=== PATIENT | female | born 1990 | race Caucasian/White ===

== ENCOUNTER 2016-12-30 09:40 | Inpatient (IN) ==
[2017-01-04] MEDS ORDERED: MAG-AL + SIM ORAL LIQUID 30ml PO PRN ×2 (03:58→13:19)
[2017-01-04] MEDS ORDERED: METHYLERGONOVINE 0.2 MG/ML INJECTION IM PRN (03:58)
[2017-01-04] MEDS ORDERED: CARBOPROST 250 MCG/ML INJECTION IM PRN (03:58)
[2017-01-04] MEDS ORDERED: LIDOCAINE 1% (10mg/ml) 2mL INJ PF SDV ID PRN (03:58)
[2017-01-04] MEDS ORDERED: CALCIUM CARBONATE Chewable 500mg TABLET PO PRN ×2 (03:58→13:19)
[2017-01-04] MEDS ORDERED: ACETAMINOPHEN 500 MG TABLET PO PRN ×2 (03:58→13:19)
--- OUTSIDE RECORDS SUMMARY | 2017-01-04 03:59 | External Medical Summary | Continuity of Care Document ---
:1990 Author Organization [facility] Address [address] [place], [place] [address] Phone Care Team Providers Name Role Phone Sarah Beaver Unavailable Unavailable Allergies, Adverse Reactions, Alerts Substance Reaction Severity Status No Known Drug Allergies Unknown Active Medications Medication Instructions Dosage Effective Dates Status Comments (start - stop) ONE DAILY take 1 tablet by oral - Active (unknown strength) route every day Problems Condition Effective Dates (start - stop) Clinical Status Unspecified lump in breast - Pap Smear Screening, Cervix - Encounter for suprvsn of normal - , first trimester 11 weeks gestation of - Unsp infct of urinary tract in - , second trimester Encounter for suprvsn of normal - , second trimester 27 weeks gestation of - Unsp infct of urinary tract in - , third trimester 36 weeks gestation of - Maternal care for excess growth, - second tri, unsp Encounter for suprvsn of normal - , second trimester 15 weeks gestation of - Maternal care for excess growth, - second tri, unsp 18 weeks gestation of - Encounter for suprvsn of normal - , second trimester 18 weeks gestation of - Encounter for suprvsn of normal - , second trimester 23 weeks gestation of - Encounter for suprvsn of normal - , second trimester 27 weeks gestation of - Hematuria, unspecified - Encounter for suprvsn of normal - , third trimester 31 weeks gestation of - Encounter for suprvsn of normal - , third trimester 39 weeks gestation of - Encounter for suprvsn of normal - , third trimester 30 weeks gestation of - 34 weeks gestation of - Encounter for suprvsn of normal - , third trimester Encounter for suprvsn of normal - , third trimester 36 weeks gestation of - Encounter for suprvsn of normal - , third trimester 37 weeks gestation of - Encounter for suprvsn of normal - , third trimester 38 weeks gestation of - SAB Uncomplicated, Incomplete - Active Anemia, Acute Blood Loss - Active SAB Uncomplicated, Incomplete - Active Dysfunctional Uterine Bleeding - Active SAB Uncomplicated, Complete - Active Procedures Procedure Date Unknown Results Test Name Date and Time Measure Units Reference Range Abnormal Flag Comments Unknown Advance Directives Directive Yes / No Effective Date File Name Unknown Encounters Encounter Practice Location Reason(s) Diagnoses Date Provider Care Team Description For Visit Members Kimberly [place]inoj[place] Encounter for Dec-0 Cueva Referring In Womens suprvsn of normal 6-201 Criss. Provider: Jignesh AGOSTO, , third 7 700 Criss Cueva PO Box weeks Medical K, 700 1522, gestation of [facility], , [facility] [place], 120, Dave 120, [id number], Ashish [place], [place], tel:[phone] , [place]. tel: tel: [phone] Kimberly Hinojosa Encounter for Nov-3 Cueva Referring In Womens suprvsn of normal 0-201 Criss. Provider: Jignesh AGOSTO, , third 7 700 Criss Cueva PO Box [email or web address] weeks Medical K, 700 1522, gestation of [facility], , [facility] [place], 120, Dave 120, [id number], Ashish [place], [place], [place], tel: [phone]. , [place]. tel: tel: [phone] Kimberly Hinojosa Encounter for Aug-2 Cueva Referring In Womens suprvsn of normal 3-201 Criss. Provider: Health SURENDRA, , third 7 700 Criss Cueva PO Box [email or web address] weeks Medical , 700 1522, gestation of [facility], , [facility] Dr [place], 120, Dave 120, [id number], Ashish [place], [place], tel:[phone]. , [place]. tel: tel: [phone] Kimberly Hinojosa Aug-2 Cueva In Womens 1-201 Criss. Health SURENDRA, 7 700 PO [address] Medical [address]22, Paulina Jarvis, , [facility] [place], 120, [id number], [place], tel:[phone] , [place]. tel: [phone] Kimberly Hinojosa Unsp infct of Aug-1 Cueva Referring In Womens urinary tract in 7-201 Criss. Provider: Jignesh AGOSTO, , third 7 700 Criss Cueva PO Box [email or web address] weeks Medical , 700 1522, gestation of [facility], , [facility] Dr [place], 120, Dave 120, [id number], Ashish [place], [place], tel: [phone]. , [place]. tel: tel: [phone] Kimberly Hinojosa Encounter for Aug-1 Cueva Referring In Womens suprvsn of normal 6-201 Criss. Provider: Jignesh AGOSTO, , third 7 700 Criss Cueva PO Box [email or web address] weeks Medical , 700 1522, gestation of [facility], , [facility] Dr [place], 120, Dave 120, [id number], Ashish [place], [place], tel:+ [phone]. , [place]. tel: tel: [phone] Kimberly Hinojosa 34 weeks Nov-0 Cueva Referring In Womens gestation of 2- Criss. Provider: Jignesh AGOSTO, pregnancyEncounte 7 700 Criss Cueva PO Box r for suprvsn of Medical , 700 1522, normal , [facility], third trimester , [facility] Dr [place], 120, Dave 120, , Ashish [place], [place], [place], tel: [phone]. , [place]. tel: tel: [phone] Kimberly Hinojosa Hematuria, Oct- Cueva Referring In Womens unspecifiedEncoun - Criss. Provider: Jignesh AGOSTO, ter for suprvsn 7 700 Criss Cueva PO Box of [facility], 700 1522, , third [facility], [email or web address] weeks , [facility] Dr [place], gestation of 120, Dave 120, , Ashish [place], [place], [place], tel: [phone]. , [place]. tel: tel: [phone] Kimberly Hinojosa Encounter for Oct- Cueva Referring In Womens suprvsn of normal - Criss. Provider: Jignesh AGOSTO, , third 7 700 Criss Cueva PO Box [email or web address] weeks Medical , 700 1522, gestation of [facility], , [facility] Dr [place], 120, Dave 120, [id number], Ashish [place], [place], tel: [phone]. , [place]. tel: tel: [phone] Kimberly Hinojosa Unsp infct of [place] Referring In Womens urinary tract in - Rhea. Provider: Jignesh AGOSTO, , second 7 700 Criss Cueva PO Box [facility] , 700 1522, r for suprvsn of [facility], normal , , [facility] Dr FI[place], second 120, Dave 120, , [email or web address] weeks Ashish [place], gestation of [place], tel: [phone]. , [place]. tel: tel: [phone] Kimberly Hinoj[place] Encounter for Shaq-1 Cueva Referring In Womens suprvsn of normal 3-201 Criss. Provider: Jignesh AGOSTO, , second 7 700 Criss Cueva PO Box [email or web address] weeks Medical , 700 1522, gestation of [facility], , [facility] Dr [place], 120, Dave 120, , Ashish [place], [place], [place], tel: [phone]. , [place]. tel: tel: [phone] [place] Encounter for May-1 Cueva Referring In Womens suprvsn of normal 6-201 Criss. Provider: Jignesh AGOSTO, , second 7 700 Criss Cueva PO Box [email or web address] weeks [facility], 700 1522, gestation of [facility], , [facility] Dr [place], 120, Dave 120, , Ashish [place], [place], tel: [phone]. , [place]. tel: tel: [phone] Kimberly [place] Encounter for Apr-1 Cueva Referring In Womens suprvsn of normal 7-201 Criss. Provider: Jignesh AGOSTO, , second 7 700 Criss Cueva PO Box [email or web address] weeks [facility], 700 1522, gestation of [facility], , [facility] Dr [place], 120, Dave 120, [id number], Ashish [place], [place], [place], tel: [phone]. , [place]. tel: tel: [phone] [place] Maternal care for Apr-1 Cueva Referring In Womens Ultrasound excess 7-201 Criss. Provider: Jignesh AGOSTO, growth, second 7 700 Criss Cueva PO Box tri, [email or web address] weeks [facility], 700 1522, gestation of [facility], , [facility] Dr [place], 120, Dave 120, [id number], Ashish [place], [place], tel:[phone]. , [place]. tel: tel: [phone] Kimberly Hinojosa Maternal care for Jun- Cueva Referring In Womens excess 2-201 Criss. Provider: Jignesh AGOSTO, growth, second 7 700 Criss Cueva PO Box [facility], 700 1522, unspEncounter for [facility], suprvsn of normal , [facility] Dr [place], , second 120, Dave 120, [id number], [email or web address] weeks Ashish [place], gestation of [place], [place], tel: [phone]. , [place]. tel: tel: [phone] Kimberly Hinojosa Unspecified lump Feb- Cueva Referring In Womens in breastPap 4-201 Criss. Provider: Jignesh AGOSTO, Smear Screening, 7 700 Criss Cueva [facility], for suprvsn of [facility] [place], normal , , [facility] Dr [place], first [email or web address] 120, Dave 120, [id number], weeks gestation Ashish [place], of [place], tel:[phone]. , [place]. tel: tel: [phone] Kimberly Hinojosa Cueva In Womens 5-201 Criss. Jignesh AGOSTO, 4 700 PO [address] Medical [address], [address] [place], [facility] [place], 120, [id number], [place], [place], tel:[phone] , [place]. tel: [phone] Family History Family Member Diagnosis Age At Onset No family history of Diabetes No family history of Ovarian Cancer No family history of Lung Disease Brother Renal disease Mother Osteoporosis No family history of Thyroid Disorder No family history of Hypertension No family history of Epilepsy No Family history of Thrombosis No family history of Breast Cancer No family history of Cardiovascular Disease No family history of Stroke No family history of Colon Cancer Immunizations Vaccine Date Status Comments Tdap completed Source: New Immunization Record Influenza, injectable, completed Source: Other Provider quadrivalent, preservative free, 3 yrs or older Payers Payer name Insurance type Covered democrat ID Authorization(s) [employer] [place] [id number] [employer] - [place] [id number] Social History Type Description Quantity Date Captured Unknown Vital Signs Date / Height Weight BMI Pulse Blood Temperature Respiratory Body Head BMI Time: Rate Pressure Rate Surface Circumference percentile Area Unknown Chief Complaint And Reason For Visit Unknown Chief Complaint And Reason For Visit Reason For Referral Reason For Referral Unknown Plan Of Care Date Type Action Status Appointment Nannette Jones BOOKED Future Order: Radiology Order Breast Ultrasound Left Breast Ordered ([id number]) Future Order: Radiology Order Complete OB Ultrasound > 14 Ordered Weeks ([id number]) Date Type Problem Goal Intervention Status Start Date Unknown. History Of Present Illness Encounter Date Complaint History Of Present Illness This patient has no known history of present illness Functional Status Encounter Date Functional Assessment Cognitive Assessment Unknown Medications Administered Medication Instructions Dosage Effective Dates (start - stop) Status Comments Drug Treatment Unknown Instructions Date Instruction Additional Information labor signs group B strep screening [facility] appt card gestational glucose lab screening anticipated course of care nutrition and weight gain counseling, special diet toxoplasmosis precautions (cats / raw meat) exercise indications for ultrasound influenza vaccine environmental / work hazards travel HIV and other routine tests risk factors identified by history tobacco (ask, advise, assess, assist and arrange) alcohol illicit / recreational drugs use of any medications (including supplements, vitamins, herbs, OTC drugs) smoking counseling domestic violence seat belt use genetic testing new ob handbook Zika virus assessment & precautions dentist, wt gain 25-35#
--- OUTSIDE RECORDS SUMMARY | 2017-01-04 03:59 | External Medical Summary | Continuity of Care Document ---
:1990 Author Organization [facility] Address [address] [place], [place] [address] Phone Care Team Providers Name Role Phone [...] third 7 700 Criss Cueva PO Box [email or web address] weeks Medical K, 700 1522, gestation of [facility], , [facility] [place], 120, Dave 120, [id number], Ashish [place], [place], tel:[phone] , [place]. tel: tel: [phone] Kimberly Hinojosa Encounter for Nov-3 Cueva Referring In Womens suprvsn of normal 0-201 Criss. Provider: Jignesh AGOSTO, , third 7 700 Criss Cueva PO Box [email or web address] weeks Medical K, 700 1522, gestation of [facility], , [facility] Dr FIEL[place], 120, Dave 120, [id number], Ashish [place], [place], [place], tel: [phone]. , [place]. tel: tel: [phone] Kimberly Hinoj[place] Encounter for Aug-2 Cueva Referring In Womens suprvsn of normal 3-201 Criss. Provider: Jignesh AGOSTO, , third 7 700 Criss Cueva PO Box [email or web address] weeks Medical , 700 1522, gestation of [facility], , [facility] Dr FIEL[place], 120, Dave 120, [id number], Ashish [place], [place], tel: [phone]. , [place]. tel: tel: [phone] [place]ino[place] Aug-1 Cueva Referring In Womens 9-201 Criss. Provider: Jignesh AGOSTO, 7 700 Criss Cueva PO Box [facility], 700 1522, [facility], , [facility] Dr FIEL[place], 120, Dave 120, [id number], Ashish [place], [place], [place], tel:[phone]. , [place]. tel: tel: [phone] Kimberly Hinojosa Unsp infct of Aug-1 Cueva Referring In Womens urinary tract in 7-201 Criss. Provider: Jignesh AGOSTO, , third 7 700 Criss Cueva PO Box [id number] weeks Medical , 700 1522, gestation of [facility], , [facility] Dr FIEL[place], 120, Dave 120, [id number], Ashish [place], [place], tel: [phone]. , [place]. tel: tel: [phone] Kimberly Hinojosa Encounter for Aug-1 Cueva Referring In Womens suprvsn of normal 6-201 Criss. Provider: Health SURENDRA, , third 7 700 Criss Cueva PO Box [email or web address] weeks Medical , 700 1522, gestation of [facility], , [facility] Dr FIEL[place], 120, Dave 120, [id number], Ashish [place], [place], [place], tel: [phone]. , [place]. tel: tel: [phone] Kimberly Hinojosa 34 weeks Nov-0 Cueva Referring In Womens gestation of 2-201 Criss. Provider: Jignesh AGOSTO, pregnancyEncounte 7 700 Criss Cueva PO Box r for suprvsn of [facility], 700 152, normal , [facility], third trimester , [facility] Dr [place], 120, Dave 120, [id number], Ashish [place], [place], [place], tel: [phone]. , [place]. tel: tel: [phone] Kimberly Hinojosa Hematuria, Cueva Referring In Womens unspecifiedEncoun - Criss. Provider: Jignesh AGOSTO, ter for suprvsn 7 700 Criss Cueva PO Box of normal Medical , 700 152, , third [facility], [id number] weeks , [facility] Dr FIELDS, gestation of 120, Dave 120, , Ashish [place], [place], tel: [phone]. , [place]. tel: tel: [phone] Kimberly Hinojosa Encounter for Oct- Cueva Referring In Womens suprvsn of normal 5-201 Criss. Provider: Jignesh AGOSTO, , third 7 700 Criss Cueva PO Box [email or web address] weeks Medical , 700 1522, gestation of [facility], , [facility] Dr [place], 120, Dave 120, [id number], Ashish [place], [place], tel: [phone]. , [place]. tel: tel: [phone] Kimberly Hinojosa Unsp infct of [place] Referring In Womens urinary tract in 5-201 Rhea. Provider: Jignesh AGOSTO, , second 7 700 Criss Cueva PO Box [facility] , 700 1522, [facility] , , [facility] Dr FIELDS, second 120, Dave 120, [id number], [email or web address] weeks Ashish [place], gestation of [place], [place], tel: [phone]. , [place]. tel: tel: [phone] Kimberly Hinojosa Encounter for Shaq-1 Cueva Referring In Womens suprvsn of normal 3-201 Criss. Provider: Health SURENDRA, , second 7 700 Criss Cueva PO Box [email or web address] weeks Medical , 700 1522, gestation of [facility], , [facility] Dr [place], 120, Dave 120, [id number], Ashish [place], [place], tel:[phone]. , [place]. tel: tel: [phone] Hinojosa Encounter for May-1 Cueva Referring In Womens suprvsn of normal 6-201 Criss. Provider: Jignesh AGOSTO, , second 7 700 Criss Cueva PO Box [email or web address] weeks Medical , 700 1522, gestation of [facility], , [facility] Dr [place], 120, Dave 120, [id number], Ashish [place], [place], tel: [phone]. , [place]. tel: tel: [phone] [place] Encounter for Apr-1 Cueva Referring In Womens suprvsn of normal 7-201 Criss. Provider: Health SURENDRA, , second 7 700 Criss Cueva PO Box [email or web address] weeks Medical , 700 1522, gestation of [facility], , [facility] Dr FI[place], 120, Dave 120, [id number], Ashish [place], [place], [place], tel:[phone]. , [place]. tel: tel: [phone] Kimberly Hinojosa Maternal care for Apr-1 Cueva Referring In Womens Ultrasound excess 7-201 Criss. Provider: Health SURENDRA, growth, second 7 700 Criss Cueva PO Box tri, [email or web address] weeks Medical , 700 1522, gestation of [facility], Dr, [facility] Dr FIEL[place], 120, Dave 120, , Ashish [place], [place], tel: [phone]. , [place]. tel: tel: [phone] Kimberly Hinoj[place] Maternal care for Mar- Cueva Referring In Womens excess 2-201 Criss. Provider: Health PA, growth, second 7 700 Criss Cueva PO Box tri, Medical , 700 1522, unspEncounter for [facility], suprvsn of normal , [facility] Dr FIELDS, , second 120, Dave 120, [id number], [email or web address] weeks Ashish [place], gestation of [place], [place], tel: [phone]. , [place]. tel: tel: [phone] Kimberly [place] Unspecified lump Fe-2 Cueva Referring In Womens in breastPap 4-201 Criss. Provider: Health SURENDRA, Smear Screening, 7 700 Criss Cueva PO Box [facility], 700 1522, for suprvsn of [facility], normal , , [facility] Dr FIELDS, first [email or web address] 120, Dave 120, [id number], weeks gestation Ashish [place], [place], [place], tel: [phone]. , [place]. tel: tel: [phone] Kimberly Hinoj[place] Oct- Cueva In Womens 5-201 Criss. Health SURENDRA, 4 700 PO [address] Medical [address], [address] [place], Dave [place], 120, , [place], [place], tel: [phone] , [place]. tel: [phone] Family History Family Member Diagnosis Age At [...] older Payers Payer name Insurance type Covered green party ID Authorization(s) [employer] - Medicaid [place] [id number] [employer] - Medicaid [place] [id number] Social History Type Description Quantity Date Captured Alcohol Use Details No Caffeine Use Details Unknown Tobacco Use Status Unknown Smoking Status Never smoker Vital Signs Date / Height Weight BMI Pulse Blood Temperature Respiratory Body Head BMI Time: Rate Pressure Rate Surface Circumference percentile Area Unknown Chief Complaint And Reason For Visit Unknown Chief Complaint And Reason For Visit Reason For Referral Reason For Referral Unknown Plan Of Care Date Type Action Status Appointment Nannette Jones BOOKED Future Order: Radiology Order Breast Ultrasound Left Breast Ordered ([id number]) Future Order: Radiology Order Complete OB Ultrasound > 14 Ordered Weeks ([id number]) Date Type Problem Goal Intervention Status Start [...] Information labor signs group B strep screening [facility] [place] appt card gestational glucose lab screening anticipated [...]
--- OUTSIDE RECORDS SUMMARY | 2017-01-04 03:59 | External Medical Summary ---
:1990 Author Organization [employer] Care Team Providers Name Role Phone Jeniffer Hampton Provider Role Unavailable Allergies, Adverse Reactions, Alerts Substance Reaction Event Type N.K.D.A. Info Not Available Non Drug Allergy Problems Problem Type Condition Code Onset Dates Condition Status Assessment Other general medical examination for V70.3 Active administrative purposes Problem Unspecified anemia 285.9 Active Medications Medication Code System Code Instructions Start End Date Status Dosage Date Levora 0.15/30 [facility] 31132-798 0.15-30 MG-MCG August 29, 1 tablet (28) 0-28 Orally Once a day 2014 Ibuprofen [facility] 19941-330 600 MG Orally 1 tablet 0-00 Three times a day Procedures Procedure Coding System Code Date OFFICE VISIT, EST-LOW COMPLEXITY (15 MIN.) CPT-4 67491 September 06, 2014 Vital Signs Date/Time: September 06, 2014 Height 62.5 in Weight 124.08 lbs Temperature 98.4 F Blood Pressure Diastolic 82 mm Hg Blood Pressure Systolic 128 mm Hg Cardiac Monitoring Heart Rate 68 /min BMI 22.33 Index Respiratory Rate 12 /min Results No Known Results Summary Purpose [employer] Submission
--- OUTSIDE RECORDS SUMMARY | 2017-01-04 03:59 | External Medical Summary ---
:1990 Author Organization [employer] Care Team Providers Name Role Phone Jeniffer Hampton Provider Role Unavailable Allergies, Adverse Reactions, Alerts Substance Reaction Event Type N.K.D.A. Info Not Available Non Drug Allergy Problems Problem Type Condition ICD-9 Code Onset Dates Condition Status Assessment General counseling for V25.01 Active prescription of oral contraceptives Assessment Unspecified anemia 285.9 Active Problem Unspecified anemia 285.9 Active Medications Medication Code System Code Instructions Start Date End Date Status Dosage Ibuprofen [facility] 18843-555 600 MG Orally 1 tablet 0-00 Three times a day Sprintec 28 [facility] 23726-894 0.25-35 MG-MCG June 27 tablet 6-58 Orally Once a day 2014 Procedures Procedure Coding System Code Date COMPLETE CBC W/AUTO DIFF WBC CPT-4 04556 June 27, 2014 OFFICE VISIT, DRIVE IN WAITER/WAITRESS-LOW COMPLEXITY (30 MIN.) CPT-4 42080 June 27, 2014 I[facility] CMP CPT-4 61843 June 27, 2014 Vital Signs Date/Time: June 27, 2014 Height 62.5 in Weight 112.8 lbs Temperature 98.8 F Blood Pressure Diastolic 58 mm Hg Blood Pressure Systolic 96 mm Hg Cardiac Monitoring Heart Rate 68 /min BMI 20.30 Index Respiratory Rate 14 /min Results No Known Results Summary Purpose [employer] Submission
--- OUTSIDE RECORDS SUMMARY | 2017-01-04 03:59 | External Medical Summary ---
:1990 Author Organization [employer] Care Team Providers Name Role Phone Jeniffer Hampton Provider Role Unavailable Allergies No Known Allergies Problems Problem Type Condition ICD-9 Code Onset Dates Condition Status Problem Unspecified anemia 285.9 Active Medications No Known Medications Results No Known Results Summary Purpose [employer] Submission
--- OUTSIDE RECORDS SUMMARY | 2017-01-04 03:59 | External Medical Summary | Continuity of Care Document ---
:1990 Author Organization [facility] Address [address] [place], [place] [phone] Phone Care Team Providers Name Role Phone Sarah Beaver Unavailable Unavailable Allergies, Adverse Reactions, Alerts Substance Reaction Severity Status No Known Drug Allergies Unknown Active Medications Medication Instructions Dosage Effective Dates Status Comments (start - stop) ONE DAILY take 1 tablet by - Active (unknown strength) oral route every day Keflex 500 mg take 1 capsule by 500 MG - No Longer capsule ORAL route 4 times Active every day Problems Condition Effective Dates (start - stop) Clinical Status Unsp infct of urinary tract in - , third trimester 36 weeks gestation of - Unspecified lump in breast - Pap Smear Screening, Cervix - Encounter for suprvsn of normal - , first trimester 11 weeks gestation of - Unsp infct of urinary tract in - , second trimester Encounter for suprvsn of normal - , second trimester 27 weeks gestation of - Maternal care for [...] Uncomplicated, Complete - Active Procedures Procedure Date 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 Test Name Date and Time Measure Units Reference Range Abnormal Flag Comments Panel Description: Bacteria identified in Urine by Culture CULTURE, URINE, 16:49:00 SEE NOTE CULTURE, URINE, ROUTINE ROUTINE MICRO NUMBER: [id number] TEST STATUS: FINAL SPECIMEN SOURCE: URINE SPECIMEN QUALITY: ADEQUATE RESULT: No GrowthREPORT COMMENT:RTest performed at [facility] [id number] [place] [address]Gjejknqd: ZAYDA BUCHANAN DO,MPH Advance Directives Directive Yes / No Effective Date File Name Unknown Encounters Encounter Practice Location Reason(s) Diagnoses Date Provider Care Team Description For Visit Members Kimberly [place]inoj[place] Encounter for Cueva Referring In Womens suprvsn of normal 6-201 Criss. Provider: [facility], , third 7 700 Criss Cueva PO Box [email or web address] weeks Medical K, 700 1522, gestation of [facility], , [facility] Dr FIELDS, 120, Dave 120, [id number], [place], [place], tel: [phone]. , [place]. tel: tel: [phone] Kimberly Hinojosa Encounter for Aug-3 Cueva Referring In Womens suprvsn of normal 0-201 Criss. Provider: [facility], , third 7 700 Criss Cueva PO Box [email or web address] weeks Medical , 700 1522, gestation of [facility], , [facility] Dr FIELDS, 120, Dave 120, [id number], Ash[place], [place], [place], tel: [phone]. , [place]. tel: tel: [phone] Hinojosa Encounter for Aug-2 Cueva Referring In Womens suprvsn of normal 3-201 Criss. Provider: [facility], , third 7 700 Criss Cueva PO Box [email or web address] weeks Medical , 700 1522, gestation of [facility], , [facility] Dr FIELDS, 120, Dave 120, [id number], [place], [place], tel: [phone]. , [place]. tel: tel: [phone] Hinojosa Unsp infct of Aug-1 Cueva Referring In Womens urinary tract in 7-201 Criss. Provider: [facility], , third 7 700 Criss Cueva PO Box [email or web address] weeks Medical K, 700 1522, gestation of [facility], , [facility] Dr FI[place]DS, 120, Dave 120, [id number], Ash[place], [place], [place], tel: [phone]. , [place]. tel: tel: [phone] Kimbrely Hinojosa Encounter for Aug-1 Cueva Referring In Womens suprvsn of normal 6-201 Criss. Provider: [facility], , third 7 700 Criss Cueva PO Box [email or web address] weeks Medical K, 700 1522, gestation of [facility], , [facility] Dr FI[place]DS, 120, Dave 120, , Ash[place], [place], tel: [phone]. , [place]. tel: tel: [phone] Kimberly [place]inoj[place] 34 weeks Nov-0 Cueva Referring In Womens gestation of 2-201 Criss. Provider: Health SURENDRA, pregnancyEncounte 7 700 Criss Cueva PO Box r for suprvsn of Medical , 700 1522, normal , [facility], third trimester , [facility] Dr [place]DS, 120, Dave 120, , [place], [place], tel: [phone]. , [place]. tel: tel: [phone] Hinojosa Hematuria, Cueva Referring In Womens unspecifiedEncoun 7-201 Criss. Provider: Health SURENDRA, ter for suprvsn 7 700 Criss Cueva PO Box of normal Medical K, 700 1522, , third Center [facility], [email or web address] weeks , [facility] Dr FIELDS, gestation of 120, Dave 120, , Ashish [place], [place], [place], tel: [phone]. , [place]. tel: tel: [phone] Hinojosa Encounter for Oct-0 Cueva Referring In Womens suprvsn of normal 5-201 Criss. Provider: Jignesh AGOSTO, , third 7 700 Criss Cueva PO Box [email or web address] weeks Medical , 700 1522, gestation of [facility], , [facility] Dr FI[place], 120, Dave 120, [id number], [place], [place], tel: [phone]. , [place]. tel: tel: [phone] Kimberly Hinojosa Unsp infct of [place] Referring In Womens urinary tract in - Rhea. Provider: Health SURENDRA, , second 7 700 Criss Cueva PO Box trimesterEncounte Medical K, 700 1522, r for suprvsn of [facility], normal , Dr, [facility] Dr FIELDS, second 120, Dave 120, [id number], [email or web address] weeks Ashish [place], gestation of [place], [place], tel:[phone]. , [place]. tel: tel: [phone] Hinoj[place] Encounter for Shaq-1 Cueva Referring In Womens suprvsn of normal 3-201 Criss. Provider: Health SURENDRA, , second 7 700 Criss Cueva PO Box [email or web address] weeks Medical , 700 1522, gestation of [facility], , [facility] Dr FI[place]DS, 120, Dave 120, , Ash[place], [place], tel:[phone]. , [place]. tel: tel: [phone] Hinojosa Encounter for May-1 Cueva Referring In Womens suprvsn of normal 6-201 Criss. Provider: Jignesh AGOSTO, , second 7 700 Criss Cueva PO Box [email or web address] weeks Medical , 700 1522, gestation of [facility], , [facility] Dr FI[place]DS, 120, Dave 120, [id number], Ashish [place], [place], tel: [phone]. , [place]. tel: tel: [phone] Hinojosa Encounter for Apr-1 Cueva Referring In Womens suprvsn of normal 7-201 Criss. Provider: Health SURENDRA, , second 7 700 Criss Cueva PO Box [email or web address] weeks Medical K, 700 1522, gestation of [facility], , [facility] Dr FI[place]DS, 120, Dave 120, [id number], Ashish [place], [place], tel:[phone]. , [place]. tel: tel: [phone] Hinojosa Maternal care for Apr-1 Cueva Referring In Womens Ultrasound excess 7- Criss. Provider: Health SURENDRA, growth, second 7 700 Criss Cueva PO Box tri, [email or web address] weeks [facility], 700 1522, gestation of [facility] [place], Dr, [facility] Dr FIELDS, 120, Dave 120, [id number], Ashish [place], [place], tel: [phone]. , [place]. tel: tel: [phone] Kimberly Hinojosa Maternal care for Jun- Cueva Referring In Womens excess 2-201 Criss. Provider: Health SURENDRA, growth, second 7 700 Criss Cueva PO Box tri, Medical , 700 1522, unspEncounter for [facility], suprvsn of normal Dr, [facility] Dr FIELDS, , second 120, Dave 120, [id number], [id number] weeks Ashish Hinojosa, gestation of [place], [place], tel: [phone]. , [place]. tel: tel: [phone] Kimberly Hinojosa Unspecified lump Feb- Cueva Referring In Womens in breastPap - Criss. Provider: Health SURENDRA, Smear Screening, 7 700 Criss Cueva PO Box CervixEncounter [facility], 700 1522, for suprvsn of [facility] [place], normal , , [facility] Dr FIELDS, first [email or web address] 120, Dave 120, [id number], weeks gestation Ashish H[place], [place] of [place], tel: [phone]. , [place]. tel: tel: [phone] Kimberly Hinojosa Oct- Cueva In Womens 5-201 Criss. Health SURENDRA, 4 700 PO Box Medical 15[address], [place] [address] Jar[place], [facility] [place], 120, [id number], [place], tel: [phone] , [place]. tel: [phone] Family History Family Member Diagnosis Age At [...] Authorization(s) [employer] - Medicaid [place] [id number] [employer] - Medicaid [place] [id number] Social History Type Description Quantity Date Captured Alcohol Use Details No Caffeine Use Details Unknown Tobacco Use Status Unknown Smoking Status Never smoker Vital Signs Date / Height Weight BMI Pulse Blood Temperature Respiratory Body Head BMI Time: Rate Pressure Rate Surface Circumference percentile Area 151.60 26.6 120/ lbs 0 mm[Hg] 4:16 kg/m PM eter (2) Chief Complaint And Reason For Visit Unknown Chief Complaint And Reason For Visit Reason For Referral Reason For Referral Unknown Plan Of Care Date Type Action Status Appointment Nannette Jones BOOKED Future Order: Radiology Order Breast Ultrasound Left Breast Ordered ([id number]) Future Order: Radiology Order Complete OB Ultrasound > 14 Ordered Weeks ([id number]) Date Type Problem Goal Intervention Status Start [...] Information labor signs group B strep screening [facility] appt card gestational glucose lab screening anticipated [...]
--- OUTSIDE RECORDS SUMMARY | 2017-01-04 03:59 | External Medical Summary | Continuity of Care Document ---
:1990 Author Organization [facility] Address [address] [place], [place] [id number] Phone Care Team Providers Name Role Phone [...] third 7 700 Criss Cueva PO Box [id number] weeks Medical K, 700 1522, gestation of [facility], , [facility] [place], 120, Dave 120, [id number], Ashish Hinoj[place], [place], tel:[phone] , [place]. tel: tel: [phone] Kimberly Hinojosa Encounter for Nov-3 Cueva Referring In Womens suprvsn of normal 0-201 Criss. Provider: Jignesh AGOSTO, , third 7 700 Criss Cueva PO Box weeks Medical K, 700 1522, gestation of [facility], , [facility] [place], 120, Dave 120, [id number], [place], [place], tel: [phone]. , [place]. tel: tel: [phone] Kimberly Hinojosa Encounter for Aug-2 Cueva Referring In Womens suprvsn of normal 3-201 Criss. Provider: Health SURENDRA, , third 7 700 Criss Cueva PO Box [email or web address] weeks Medical , 700 1522, gestation of [facility], , [facility] [place], 120, Dave 120, [id number], [place], [place], tel:[phone]. , [place]. tel: tel: [phone] Kimberly Hinojosa Unsp infct of Aug-1 Cueva Referring In Womens urinary tract in 7-201 Criss. Provider: Health SURENDRA, , third 7 700 Criss Cueva PO Box [email or web address] weeks Medical , 700 1522, gestation of [facility], , [facility] Dr FIELDS, 120, Dave 120, [id number], Ash[place], [place], [place], tel:[phone]. , [place]. tel: tel: [phone] Kimberly Hinojosa Aug-1 Cuvea In Womens 7-201 Criss. Health SURENDRA, 7 700 PO Box Medical 1522, [address] [place], [facility] [place], 120, [id number], [place], [place], tel: [phone] , [place]. tel: [phone] Kimberly Hinojosa Encounter for Aug-1 Cueva Referring In Womens suprvsn of normal 6-201 Criss. Provider: Health SURENDRA, , third 7 700 Criss Cueva PO Box [email or web address] weeks Medical , 700 1522, gestation of [facility], , [facility] [place], 120, Dave 120, [id number], [place], [place], tel: [phone]. , [place]. tel: tel: [phone] Kimberly Hinojosa 34 weeks Nov-0 Cueva Referring In Womens gestation of 2- Criss. Provider: Jignesh AGOSTO, pregnancyEncounte 7 700 Criss Cueva PO Box r for suprvsn of Medical , 700 1522, normal , [facility], third trimester , [facility] Dr FIELDS, 120, Dave 120, , Ashish [place], [place], tel: [phone]. , [place]. tel: tel: [phone] Kimberly Hinojosa Hematuria, Oct- Cueva Referring In Womens unspecifiedEncoun - Criss. Provider: Jignesh AGOSTO, ter for suprvsn 7 700 Criss Cueva PO Box of [facility], 700 1522, , third [facility], [email or web address] weeks , [facility] Dr FIELDS, gestation of 120, Dave 120, , Ash[place], [place], [place], tel: [phone]. , [place]. tel: tel: [phone] Kimberly Hinojosa Encounter for Oct- Cueva Referring In Womens suprvsn of normal - Criss. Provider: Jignesh AGOSTO, , third 7 700 Criss Cueva PO Box [email or web address] weeks Medical , 700 1522, gestation of [facility], , [facility] Dr FIELDS, 120, Dave 120, [id number], Ashish [place], [place], tel: [phone]. , [place]. tel: tel: [phone] Kimberly Hinojosa Unsp infct of [place] Referring In Womens urinary tract in - Rhea. Provider: Jignesh AGOSTO, , second 7 700 Criss Cueva PO Box [facility] , 700 1522, r for suprvsn of [facility], normal , , [facility] Dr FIELDS, second 120, Dave 120, , [id number] weeks Ashish Hinoj[place], gestation of [place], tel: [phone]. , [place]. tel: tel: [phone] Kimberly Hinojosa Encounter for Shaq-1 Cueva Referring In Womens suprvsn of normal 3-201 Criss. Provider: Jignesh AGOSTO, , second 7 700 Criss Cueva PO Box [email or web address] weeks Medical , 700 1522, gestation of [facility], , [facility] Dr FIELDS, 120, Dave 120, , Ash[place], [place], tel: [phone]. , [place]. tel: tel: [phone] Hinojosa Encounter for May-1 Cueva Referring In Womens suprvsn of normal 6-201 Criss. Provider: Jignesh AGOSTO, , second 7 700 Criss Cueva PO Box [email or web address] weeks [facility], 700 1522, gestation of [facility], , [facility] Dr FIELDS, 120, Dave 120, , Ashish [place], [place], [place], tel: [phone]. , [place]. tel: tel: [phone] Kimberly Hinojosa Encounter for Apr-1 Cueva Referring In Womens suprvsn of normal 7-201 Criss. Provider: Jignesh AGOSTO, , second 7 700 Criss Cueva PO Box [email or web address] weeks [facility], 700 1522, gestation of [facility], , [facility] Dr FIELDS, 120, Dave 120, [id number], [place], [place], tel: [phone]. , [place]. tel: tel: [phone] Hinojosa Maternal care for Apr-1 Cueva Referring In Womens Ultrasound excess 7-201 Criss. Provider: Jignesh AGOSTO, growth, second 7 700 Criss Cueva PO Box tri, [email or web address] weeks [facility], 700 1522, gestation of [facility], , [facility] Dr FIELDS, 120, Dave 120, [id number], Ashish [place], [place], tel:[phone]. , [place]. tel: tel: [phone] Kimberly Hinojosa Maternal care for Jun- Cueva Referring In Womens excess 2-201 Criss. Provider: Jignesh AGOSTO, growth, second 7 700 Criss Cueva PO Box [facility], 700 1522, unspEncounter for [facility], suprvsn of normal , [facility] Dr FIELDS, , second 120, Dave 120, [id number], [email or web address] weeks Ashish Hinojosa, gestation of [place], [place], tel: [phone]. , [place]. tel: tel: [phone] Kimberly Hinojosa Unspecified lump Feb- Cueva Referring In Womens in breastPap 4-201 Criss. Provider: Jignesh AGOSTO, Smear Screening, 7 700 Criss Cueva [facility], for suprvsn of [facility], normal , , [facility] Dr FIELDS, first [email or web address] 120, Dave 120, [id number], weeks gestation Ashish Hinojosa, of [place], tel:[phone]. , [place]. tel: tel: [phone] Kimberly Hinojosa Cueva In Womens 5-201 Criss. Jignesh AGOSTO, 4 700 PO Box Medical 1522, [address] [place], [facility] [place], 120, [id number], [place], tel:[phone] , [place]. tel: [phone] Family History Family Member Diagnosis Age At [...] older Payers Payer name Insurance type Covered alliance party ID Authorization(s) [employer] - Medicaid [place] [id number] [employer] - Medicaid [place] [id number] Social History Type Description Quantity Date Captured [...] Radiology Order Breast Ultrasound Left Breast Ordered ([id number]) Future Order: Radiology Order Complete OB Ultrasound > 14 Ordered Weeks ([id number]) Date Type Problem Goal Intervention Status Start [...] Information labor signs group B strep screening [facility] appt card gestational glucose lab screening anticipated [...]
--- OUTSIDE RECORDS SUMMARY | 2017-01-04 03:59 | External Medical Summary | Continuity of Care Document ---
:1990 Author Organization [facility] [facility] [facility] Address [address] [place], [place] [address] Phone Care Team Providers Name Role Phone [...] Effective Dates (start - stop) Clinical Status Hematuria, unspecified - Encounter for suprvsn of normal - , third trimester 31 weeks gestation of - Unspecified lump in [...] second trimester 27 weeks gestation of - Encounter for suprvsn of normal - , second trimester 18 weeks gestation of - Encounter for suprvsn of normal - , second trimester 23 weeks gestation of - Encounter for suprvsn of normal - , third trimester 30 weeks gestation of - Encounter for suprvsn of normal - , third trimester 34 weeks gestation of - SAB Uncomplicated, Incomplete - Active Anemia, Acute Blood Loss - Active SAB Uncomplicated, Incomplete - Active Dysfunctional Uterine Bleeding - Active SAB Uncomplicated, Complete - Active Procedures 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 Provider: Health SURENDRA, , third 7 700 Criss Cueva PO Box [email or web address] weeks Medical , 700 1522, gestation of [facility], , [facility] Dr FIELDS, 120, Dave 120, , Ashish [place], [facility], [place], tel:[phone] , [place]. tel: tel: [phone] Kimberly Hinojosa Hematuria, Cueva Referring In Womens unspecifiedEncoun 7-201 Criss. Provider: Jignesh AGOSTO, ter for suprvsn 7 700 Criss Cueva PO Box of normal Medical K, 700 1522, , third Center [facility], [email or web address] weeks , [facility] Dr FIELDS, gestation of 120, Dave 120, [id number], Ashish Hinoj[place], [facility], [place], tel:[phone] , [place]. tel: tel: [phone] Kimberly Hinojosa Encounter for Cueva Referring In Womens suprvsn of normal 5-201 Criss. Provider: Health SURENDRA, , third 7 700 Criss Cueva PO Box [email or web address] weeks Medical , 700 1522, gestation of [facility], , [facility] Dr FIELDS, 120, Daev 120, [id number], Ashish [place], [place], [place], tel: [phone]. , [place]. tel: tel: [phone] Kimberly Hinojosa Unsp infct of Shaq-1 [place] Referring In Womens urinary tract in 5-201 Rhea. Provider: Health SURENDRA, , second 7 700 Criss Cueva PO Box trimesterEncounte Medical , 700 1522, r for suprvsn of [facility], normal , , [facility] Dr FIELDS, second 120, Dave 120, , [email or web address] weeks Ashish H[place], gestation of [place], [place], tel: [phone]. , [place]. tel: tel: [phone] Kimberly Hinojosa Encounter for Shaq-1 Cueva Referring In Womens suprvsn of normal 3-201 Criss. Provider: Health SURENDRA, , second 7 700 Criss Cueva PO Box [email or web address] weeks Medical , 700 1522, gestation of [facility], , [facility] Dr FIELDS, 120, Dave 120, [id number], Ashish [place], [place], [place], tel: [phone]. , [place]. tel: tel: [phone] Kimberly Hinoj[place] Encounter for May- Cueva Referring In Womens suprvsn of normal 6-201 Criss. Provider: Health SURENDRA, , second 7 700 Criss Cueva PO Box weeks Medical , 700 1522, gestation of [facility], , [facility] Dr FIELDS, 120, Dave 120, [id number], Ash[place], [place], [place], tel:[phone]. , [place]. tel: tel: [phone] Kimberly Hinojosa Encounter for Apr-1 Cueva Referring In Womens suprvsn of normal 7-201 Criss. Provider: Jignesh AGOSTO, , second 7 700 Criss Cueva PO Box weeks Medical , 700 1522, gestation of [facility], , [email or web address] Dr FIELDS, 120, Dave 120, [id number], Ashish [place], [place], [place], tel: [phone]. , [place]. tel: tel: [phone] Kimberly Hinojosa Maternal care for Apr-1 Cueva Referring In Womens Ultrasound excess 7- Criss. Provider: Jignesh AGOSTO, growth, second 7 Criss Cueva PO Box tri, [email or web address] weeks [facility], 700 1522, gestation of [facility], , [facility] Dr FIELDS, 120, Dave 120, , Ashish [place], [place], tel:[phone]. , [place]. tel: tel: [phone] Kimberly Hinojosa Maternal care for Mar-2 Cueva Referring In Womens excess 2-201 Criss. Provider: Jignesh AGOSTO, growth, second 7 Criss Cueva PO Box tri, [facility], 700 1522, unspEncounter for [facility], suprvsn of normal , [facility] Dr FIELDS, , second 120, Dave 120, [id number], [email or web address] weeks Ashish [place], gestation of [place], tel: [phone]. , [place]. tel: tel: [phone] Kimberly [place] Unspecified lump Feb-2 Cueva Referring In Womens in breastPap 4-201 Criss. Provider: Jignesh AGOSTO, Smear Screening, 7 700 Criss Cueva PO Box CervixEncounter [facility], 700 1522, for suprvsn of [facility], normal , , [facility] Dr FIELDS, first [email or web address] 120, Dave 120, [id number], weeks gestation Ash[place], [place] of [place], tel: [phone]. , . tel: tel: [phone] Associates [place] Cueva In Womens 5-201 Criss. [facility], 4 700 PO [facility] 15[address], [address] [address] [place], [place], 120, [id number], [place], [place], tel: [phone] , . tel: [phone] Family History Family Member Diagnosis Age At [...] older Payers Payer name Insurance type Covered libertarian ID Authorization(s) [employer] - Medicaid [place] [id number] [employer] - Medicaid [place] [id number] Social History Type Description Quantity Date Captured Alcohol Use Details No Caffeine Use Details Unknown Tobacco Use Status Unknown Smoking Status Never smoker Vital Signs Date / Height Weight BMI Pulse Blood Temperature Respiratory Body Head BMI Time: Rate Pressure Rate Surface Circumference percentile Area 144.00 25.2 113/66 lbs 6 mm[Hg] 11:59 kg/m AM eter (2) 0 9 11:24 kg/m AM eter (2) Chief Complaint And Reason For Visit Unknown Chief Complaint And Reason For Visit Reason For Referral Reason For Referral Unknown Plan Of Care Date Type Action Status Appointment Nannette Jones BOOKED Future Order: Radiology Order Breast Ultrasound Left Breast Ordered ([id number]) Future Order: Radiology Order Complete OB Ultrasound > 14 Ordered Weeks ([id number]) Date Type Problem Goal Intervention Status Start Date Unknown. History Of Present Illness Encounter Date Complaint History Of Present Illness This patient has no known history of present illness Functional Status Encounter Date Functional Assessment Cognitive Assessment Unknown Medications Administered Medication Instructions Dosage Effective Dates (start - stop) Status Comments Drug Treatment Unknown Instructions Date Instruction Additional Information gestational glucose lab screening anticipated course of [...]
--- OUTSIDE RECORDS SUMMARY | 2017-01-04 03:59 | External Medical Summary ---
:1990 Author Organization e[employer] Care Team Providers Name Role Phone Sarah Adrian Provider Role Unavailable Allergies, Adverse Reactions, Alerts Substance Reaction Event Type N.K.D.A. Info Not Available Non Drug Allergy Problems Problem Type Condition Code Onset Dates Condition Status Assessment Acute upper respiratory infection, J06.9 Active unspecified Assessment Other viral agents as the cause of B97.89 Active diseases classified elsewhere Problem Unspecified anemia 285.9 Active Medications Medication Code System Code Instructions Start End Date Status Dosage Date Promethazine-Co [facility] 01833-825 6.25-10 MG/5ML Jan 16, Jan 04, 5 ml as deine 7-05 Orally every 6 2015 2015 needed hrs Levora 0.15/30 [facility] 28328-357 0.15-30 MG-MCG August 29, 1 tablet (28) 0-28 Orally Once a 2014 day ProAir HFA [facility] 82089-285 108 (90 Base) Jan 16, 2 puffs as 1-85 MCG/ACT 2015 needed Inhalation every 4 hrs Ibuprofen [facility] 12725-890 600 MG Orally 1 tablet 0-00 Three times a day Procedures Procedure Coding System Code Date OFFICE VISIT, EST-LOW COMPLEXITY (15 MIN.) CPT-4 60870 Jan 17, 2016 Vital Signs Date/Time: Jan 17, 2016 Temperature 98.4 F Height 62.5 in Weight 125.12 lbs Blood Pressure Diastolic 66 mm Hg Blood Pressure Systolic 120 mm Hg Cardiac Monitoring Heart Rate 108 /min BMI 22.52 Index Oximetry 98 % Respiratory Rate 18 /min Results No Known Results Summary Purpose eClinicalWorks Submission
--- OUTSIDE RECORDS SUMMARY | 2017-01-04 03:59 | External Medical Summary | Continuity of Care Document ---
:1990 Author Organization [facility] Address [address] [place], [place] [address] Phone Care Team Providers Name Role Phone Sarah Beaver Unavailable Unavailable Allergies, Adverse Reactions, Alerts Substance Reaction Severity Status No Known Drug Allergies Unknown Active Medications Medication Instructions Dosage Effective Dates Status Comments (start - stop) Keflex 500 mg capsule take 1 capsule by 500 MG - Active ORAL route 4 times every day ONE DAILY take 1 tablet by oral - Active (unknown strength) route every day diphenhydramine 25 mg take 1 tablet by oral - Active tablet route as needed at bedtime Problems Condition Effective Dates (start - stop) Clinical Status Encounter for suprvsn of normal - , third trimester 34 weeks gestation of - Encounter for suprvsn of normal - , third trimester 36 weeks gestation of - Unsp infct of [...] tri, unsp 18 weeks gestation of - Hematuria, unspecified - [...] third trimester 30 weeks gestation of - SAB Uncomplicated, Incomplete - Active Anemia, Acute Blood Loss - Active SAB Uncomplicated, Incomplete - Active Dysfunctional Uterine Bleeding - Active SAB Uncomplicated, Complete - Active Procedures Procedure Date OB Visit No 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 Provider: Jignesh AGOSTO, , third 7 700 [address] [place] [address] [email or web address] weeks Medical , 700 1522, gestation of [facility], Dr [facility] [address] [place], 120, Dave 120, [id number], Ash[place], [place], tel: [phone] , [place]. tel: tel: [phone] Kimberly [place] Encounter for [place]va Referring In Womens suprvsn of normal 6-201 Criss. Provider: Jignesh AGOSTO, , third 7 700 [address]iss [place] PO [address] [email or web address] weeks Medical , 700 1522, gestation of [facility], Dr [facility] Dr [place], 120, Dave 120, , Ashish [place], [place], tel: [phone]. , [place]. tel: tel: [phone] Kimberly [place] Encounter for Nov-0 [place] Referring In Womens suprvsn of normal 2-201 Criss. Provider: Health SURENDRA, , third 7 700 Criss [place] PO Box [email or web address] weeks Medical , 700 1522, gestation of [facility], , [facility] Dr [place], 120, Dave 120, , Ashish [place], [place], tel:[phone]. , [place]. tel: tel: [phone] Kimberly [place] Hematuria, Oct- Cueva Referring In Womens unspecifiedEncoun 7-201 Criss. Provider: Health SURENDRA, ter for suprvsn 7 700 Criss [place] PO Box of [facility], 700 1522, , third [facility], [email or web address] weeks , [facility] [address] [place], gestation of 120, Dave 120, , Ashish [place], [place], [place], tel: [phone]. , [place]. tel: tel: [phone] Kimberly [place] Encounter for Oct-0 [place] Referring In Womens suprvsn of normal 5-201 Criss. Provider: Health [place], , third 7 700 Criss [place] PO Box [email or web address] weeks Medical , 700 1522, gestation of [facility], , [facility] Dr [place], 120, Dave 120, , Ashish [place], [place], tel: [phone]. , [place]. tel: tel: [phone] Kimberly [place] Unsp infct of Shaq- Thompson Referring In Womens urinary tract in 5-201 Rhea. Provider: Health SURENDRA, , second 7 700 Criss [place] PO Box trimesterEncounte [facility], 700 1522, r for suprvsn of [facility], normal , Dr [facility] Dr [place], second 120, Dave 120, [id number], [email or web address] weeks Ashish [place], gestation of [place], tel: [phone]. , [place]. tel: tel: [phone] Kimberly [place] Encounter for Shaq-1 [place] Referring In Womens suprvsn of normal 3-201 Criss. Provider: Jignesh AGOSTO, , second 7 700 Criss [place] PO Box [email or web address] weeks Medical , 700 1522, gestation of [facility], , [facility] Dr [place], 120, Dave 120, [id number], Ashish [place], [place], tel:[phone]. , [place]. tel: tel: [phone] [place] Encounter for May-1 [place] Referring In Womens suprvsn of normal 6-201 Criss. Provider: Jignesh AGOSTO, , second 7 700 Criss [place] PO Box weeks Medical , 700 1522, gestation of [facility], , [facility] Dr [place], 120, Dave 120, [id number], Ashish [place], [place], tel:[phone]. , [place]. tel: tel: [phone] [place] Encounter for Apr-1 [place] Referring In Womens suprvsn of normal 7-201 Criss. Provider: Jignesh AGOSTO, , second 7 700 Criss [place] PO Box [email or web address] weeks Medical , 700 1522, gestation of [facility], , [facility] Dr [place], 120, Dave 120, [id number], Ashish [place], [place], tel:[phone]. , [place]. tel: tel: [phone] Kimberly Hinojosa Maternal care for Apr-1 [place] Referring In Womens Ultrasound excess 7-201 Criss. Provider: Jignesh AGOSTO, growth, second 7 700 Criss [place] PO Box tri, [email or web address] weeks Medical , 700 1522, gestation of [facility], , [facility] Dr [place], 120, Dave 120, [id number], Ashish [place], [place], tel: [phone]. , [place]. tel: tel: [phone] Kimebrly Hinojosa Maternal care for Jun- Cueva Referring In Womens excess 2-201 Criss. Provider: Health [place], growth, second 7 700 Criss [place] PO Box [facility], 700 1522, unspEncounter for [facility], suprvsn of normal , [facility] Dr [place], , second 120, Dave 120, [id number], [id number] weeks Ashish [place], gestation of [place], tel: [phone]. , [place]. tel: tel: [phone] Kimberly Hinoj[place] Unspecified lump Fe- C[place]va Referring In Womens in breastPap 4-201 Criss. Provider: Health SURENDRA, Smear Screening, 7 700 Criss [place] [facility], for supr[facility]n of [facility], normal , , [facility] Dr [place], first [email or web address] 120, Dave 120, [id number], weeks gestation Ashish H[place], of [place], tel: [phone]. , [place]. tel: tel: [phone] Kimberly Hinoj[place] Oct- Cue[place] In Womens 5-201 Criss. Health SURENDRA, 4 700 PO [address] Medical [address], [place] [address] [place], [facility] [place], 120, [id number], [place], tel: [phone] , [place]. tel: [phone] Family History Family Member Diagnosis Age At [...] Authorization(s) [employer] - Medicaid [place] [id number] [employer] - Medicaid [place] [id number] Social History Type Description Quantity Date Captured Alcohol Use Details No Caffeine Use Details Unknown Tobacco Use Status Unknown Smoking Status Never smoker Vital Signs Date / Height Weight BMI Pulse Blood Temperature Respiratory Body Head BMI Time: Rate Pressure Rate Surface Circumference percentile Area 96.00 16.8 118/71 2017 lbs 4 mm[Hg] 9:24 kg/m AM eter (2) 6 9:22 kg/m AM eter (2) Chief Complaint And Reason For Visit Unknown Chief Complaint And Reason For Visit Reason For Referral Reason For Referral Unknown Plan Of Care Date Type Action Status Appointment Nannette Jones BOOKED Future Order: Radiology Order Breast Ultrasound Left Breast Ordered ([id number]) Future Order: Radiology Order Complete OB Ultrasound > 14 Ordered Weeks (09021) Date Type Problem Goal Intervention Status Start [...] Information labor signs group B strep screening [facility] appt card gestational glucose lab screening anticipated [...]
--- OUTSIDE RECORDS SUMMARY | 2017-01-04 04:00 | External Medical Summary | Continuity of Care Document ---
:1990 Author Organization [facility] Address [address] [place], [place] [id number] Phone Care Team Providers Name Role Phone [...] Team Description For Visit Members Kimberly Hinojosa Unsfarrah infct of [place] Referring In Womens urinary tract in Criss. Provider: Health [place], , third 7 700 Criss [place] PO Box [id number] weeks Medical , 700 1522, gestation of [facility], Dr [facility] Dr [place], 120, Dave 120, [id number], Ashish Hinoj[place], [facility], [place], tel:[phone] , [place]. tel: tel: [phone] Kimberly Hinojosa Encounter for Nov- [place] Referring In Womens suprvsn of normal Criss. Provider: Health [place], , third 7 700 Criss [place] PO Box [email or web address] weeks Medical , 700 1522, gestation of [facility], Dr [facility] Dr [place], 120, Dave 120, [id number], Ashish Hniojosa, [facility], [place], tel: [phone]. , [place]. tel: tel: [phone] Kimberly Hinojosa Encounter for Aug-0 [place] Referring In Womens suprvsn of normal 2-201 Criss. Provider: Health SURENDRA, , third 7 700 Criss [place] PO Box [email or web address] weeks Medical , 700 1522, gestation of [facility] [place], , [facility] Dr [place], 120, Dave 120, , Ashish [place], [place], tel: [phone]. , [place]. tel: tel: [phone] Kimberly [place]inoj[place] Oct-2 [place] In Womens 8-201 Criss. Health [place], 7 700 PO Box Medical 1522, [place], , [facility] [place], 120, , [place], [place], tel:[phone] , [place]. tel: [phone] Kimberly [place] Hematuria, Oct-1 Cue[place] Referring In Womens unspecifiedEncoun 7-201 Criss. Provider: Health SURENDRA, ter for suprvsn 7 700 Criss [place] PO Box of normal Medical K, 700 1522, , third [facility] [place], [email or web address] weeks , [facility] Dr [place], gestation of 120, Dave 120, [id number], Ashish [place], [place], [place], tel: [phone]. , [place]. tel: tel: [phone] Kimberly [place]inoj[place] Encounter for Darshan-0 [place] Referring In Womens suprvsn of normal 5-201 Criss. Provider: Health SURENDRA, , third 7 700 Criss [place] PO Box [email or web address] weeks Medical K, 700 1522, gestation of [facility] [place], , [facility] Dr [place], 120, Dave 120, [id number], Ashish [place], [place], tel: [phone]. , [place]. tel: tel: [phone] Kimberly Hinojosa Unsp infct of Shaq-1 Thompson Referring In Womens urinary tract in 5-201 Rhea. Provider: Health SURENDRA, , second 7 700 Criss [place] PO Box trimesterEncounte Medical , 700 1522, r for suprvsn of [facility], normal , , [facility] Center Dr [place], second 120, Dave 120, [id number], [id number] weeks Ashish [place], gestation of [place], [place], tel: [phone]. , [place]. tel: tel: [phone] Kimberly Hinoj[place] Encounter for Shaq-1 [place] Referring In Womens suprvsn of normal 3-201 Criss. Provider: Jignesh AGOSTO, , second 7 700 Criss [place] PO Box [email or web address] weeks Medical , 700 1522, gestation of [facility], , [facility] Dr [place], 120, Dave 120, , Ashish [place], [place], tel:[phone]. , [place]. tel: tel: [phone] Kimberly Hinoj[place] Encounter for May-1 [place] Referring In Womens suprvsn of normal 6-201 Criss. Provider: Jigensh AGOSTO, , second 7 700 Criss [place] PO Box [id number] weeks Medical , 700 1522, gestation of [facility], , [facility] Dr [place], 120, Dave 120, [id number], Ashish [place], [place], tel:[phone]. , [place]. tel: tel: [phone] Kimberly iHnojosa Encounter for Apr-1 [place] Referring In Womens suprvsn of normal 7-201 Criss. Provider: Jignesh AGOSTO, , second 7 700 Criss [place] PO Box [email or web address] weeks Medical , 700 1522, gestation of [facility], , [facility] Center Dr [place], 120, Dave 120, [id number], Ashish [place], [place], tel:[phone]. , [place]. tel: tel: [phone] Kimberly Hinojosa Maternal care for Apr- Cueva Referring In Womens Ultrasound excess - Criss. Provider: Health SURENDRA, growth, second 7 700 Criss [place] PO Box tri, [email or web address] weeks [facility], 700 1522, gestation of [facility] [place], Dr, [facility] Dr [place]DS, 120, Dave 120, [id number], Ashish [place], [place], tel: [phone]. , [place]. tel: tel: [phone] Kimberly Hinojosa Maternal care for Jun- Cueva Referring In Womens excess 2-201 Criss. Provider: Health SURENDRA, growth, second 7 700 Criss [place] PO Box tri, [facility], 700 1522, unspEncounter for [facility], suprvsn of normal , [facility] Dr [place]DS, , second 120, Dave 120, [id number], [email or web address] weeks Ashish [place], gestation of [place], [place], tel: [phone]. , [place]. tel: tel: [phone] Kimberly H[place] Unspecified lump Feb-2 [place]ue[place] Referring In Womens in breastPap - Criss. Provider: Jignesh AGOSTO, Smear Screening, 7 700 Criss [place] [facility], [facility], normal , , [facility] Dr [place], first [email or web address] 120, Dave 120, [id number], weeks gestation Ashish [place], [place] of [place], [place], tel: [phone]. , [place]. tel: tel: [phone] Kimberly Hinojosa Oct- Cue[place] In Womens 5-201 Criss. Health SURENDRA, 4 700 PO Box Medical [address], [place] [address] [place], [place], 120, [id number], [place], tel: [phone] , [place]. tel: [phone] Family History Family Member Diagnosis Age At [...] Authorization(s) [employer] - Medicaid [place] [id number] [employer] - Medicaid MC [id number] Social History Type Description Quantity Date Captured [...] Radiology Order Breast Ultrasound Left Breast Ordered ([id number]) Future Order: Radiology Order Complete OB Ultrasound > 14 Ordered Weeks ([id number]) Date Type Problem Goal Intervention Status Start [...] Information labor signs group B strep screening [facility] appt card gestational glucose lab screening anticipated [...]
--- OUTSIDE RECORDS SUMMARY | 2017-01-04 04:00 | External Medical Summary | Continuity of Care Document ---
:1990 Author Organization [facility] Address [address] [place], [place] [address] Phone Care Team Providers Name Role Phone Sarah Beaver Unavailable Unavailable Allergies, Adverse Reactions, Alerts Substance Reaction Severity Status No Known Drug Allergies Unknown Active Medications Medication Instructions Dosage Effective Dates Status Comments (start - stop) ONE DAILY take 1 tablet by - Active (unknown strength) oral route every day diphenhydramine 25 mg take 1 tablet by - No Longer tablet oral route as Active needed at bedtime Problems Condition Effective Dates [...] third trimester 31 weeks gestation of - 30 weeks gestation of - Encounter for suprvsn of normal - , third trimester Encounter for suprvsn of normal - , third trimester 34 weeks gestation of - Encounter for suprvsn of normal - , third trimester 37 weeks gestation of - Encounter for suprvsn of normal - , third trimester 38 weeks gestation of - Encounter for suprvsn of normal - , third trimester 39 weeks gestation of - SAB Uncomplicated, Incomplete - Active Anemia, Acute Blood Loss - Active SAB Uncomplicated, Incomplete - Active Dysfunctional Uterine Bleeding - Active SAB Uncomplicated, Complete - Active Procedures Procedure Date OB Visit No Charge Results Test Name Date and Time Measure Units Reference Range Abnormal Flag Comments Panel Description: STREPTOCOCCUS, GROUP B CULTURE STREPTOCOCCUS, GROUP B 15:32:00 SEE NOTE STREPTOCOCCUS, GROUP B CULTURE CULTURE MICRO NUMBER: [id number] TEST STATUS: FINAL SPECIMEN SOURCE: VAGINAL/ANORECTAL SPECIMEN QUALITY: ADEQUATE RESULT: No group B Streptococcus isolatedTest performed at [facility] [id number] [place] [address]Otcylnvw: ZAYDA BUCHANAN DO,MPH Advance Directives Directive Yes / No Effective Date File Name Unknown Encounters Encounter Practice Location Reason(s) Diagnoses Date Provider Care Team Description For Visit Members Kimberly Hinojosa Encounter for Cueva Referring In Womens suprvsn of normal 6-201 Criss. Provider: Health PA, , third 7 700 Criss Cueva PO Box [email or web address] weeks Medical , 700 1522, gestation of [facility], , [facility] [address] FIELDS, 120, Dave 120, [id number], Ashish Hinojosa, [place], [place], tel: [phone]. , [place]. tel: tel: [phone] Hinojosa Encounter for Aug-3 Cueva Referring In Womens suprvsn of normal 0-201 Criss. Provider: Health PA, , third 7 700 Criss Cueva PO Box [email or web address] weeks Medical , 700 1522, gestation of [facility], , [facility] Dr FI[place]DS, 120, Dave 120, [id number], Ashish Hinojosa, [place], [place], tel: [phone]. , [place]. tel: tel: [phone] Hinojosa Encounter for Aug-2 Cueva Referring In Womens suprvsn of normal 3-201 Criss. Provider: Health PA, , third 7 700 Criss Cueva PO Box weeks Medical , 700 1522, gestation of [facility], , [facility] Dr FI[place]DS, 120, Dave 120, [id number], Ashish Hinojosa, [place], [place], tel: [phone]. , [place]. tel: tel: [phone] Hinojosa Unsp infct of Aug-1 Cueva Referring In Womens urinary tract in 7-201 Criss. Provider: Health PA, , third 7 700 Criss Cueva PO Box [email or web address] weeks Medical , 700 1522, gestation of [facility], , [facility] Dr FI[place]DS, 120, Dave 120, [id number], Ashish Hinojosa, [place], tel: [phone]. , [place]. tel: tel: [phone] Hinojosa Encounter for Aug-1 Cueva Referring In Womens suprvsn of normal 6-201 Criss. Provider: Health PA, , third 7 700 Criss Cueva PO Box [email or web address] weeks Medical K, 700 1522, gestation of [facility], , [facility] Dr FIELDS, 120, Dave 120, [id number], Ashish H[place], [place], tel: [phone]. , [place]. tel: tel: [phone] Kimberly Hinojosa Encounter for Cueva Referring In Womens suprvsn of normal 2- Criss. Provider: Health SURENDRA, , third 7 700 Criss Cueva PO Box [email or web address] weeks Medical K, 700 1522, gestation of [facility], , [facility] Dr [place], 120, Dave 120, [id number], Ashish Hinojosa, [place], [place], tel: [phone]. , [place]. tel: tel: [phone] Kimberly Hinojosa Hematuria, Cueva Referring In Womens unspecifiedEncoun Criss. Provider: Health SURENDRA, ter for suprvsn 7 700 Criss Cueva PO Box of normal Medical K, 700 1522, , third [facility], [email or web address] weeks , [facility] Dr FIELDS, gestation of 120, Dave 120, [id number], Ashish Hinojosa, [place], tel: [phone]. , [place]. tel: tel: [phone] Kimberly Hinojosa 30 weeks Cueva Referring In Womens gestation of - Criss. Provider: Health SURENDRA, pregnancyEncounte 7 700 Criss Cueva PO Box r for suprvsn of Medical K, 700 1522, normal , [facility], third trimester , [facility] Dr [place]DS, 120, Dave 120, [id number], Ashish Hinoj[place], [place], tel: [phone]. , [place]. tel: tel: [phone] Kimberly Hinojosa Unsp infct of [place] Referring In Womens urinary tract in Rhea. Provider: Health SURENDRA, , second 7 700 Criss Cueva PO Box trimesterEncounte Medical , 700 1522, r for suprvsn of [facility], normal , , [facility] Dr FIELDS, second 120, Dave 120, [id number], [email or web address] weeks Ashish Hinojosa, gestation of [place], tel:[phone]. , [place]. tel: tel: [phone] Hinojosa Encounter for Shaq-1 Cueva Referring In Womens suprvsn of normal 3-201 Criss. Provider: Health SURENDRA, , second 7 700 Criss Cueva PO Box [email or web address] weeks Medical , 700 1522, gestation of [facility], , [facility] Dr [place]DS, 120, Dave 120, , Ashish Hinojosa, [place], tel:[phone]. , [place]. tel: tel: [phone] Hinojosa Encounter for May-1 Cueva Referring In Womens suprvsn of normal 6-201 Criss. Provider: Jignesh AGOSTO, , second 7 700 Criss Cueva PO Box [email or web address] weeks Medical , 700 1522, gestation of [facility], , [facility] Dr [place]DS, 120, Dave 120, [id number], Ashish Hinojosa, [place], tel: [phone]. , [place]. tel: tel: [phone] Hinojosa Encounter for Apr-1 Cueva Referring In Womens suprvsn of normal 7-201 Criss. Provider: Health SURENDRA, , second 7 700 Criss Cueva PO Box [email or web address] weeks Medical , 700 1522, gestation of [facility], , [facility] Dr [place], 120, Dave 120, [id number], Ashish Hinojosa, [place], [place], tel:[phone]. , [place]. tel: tel: [phone] Hinojosa Maternal care for Apr-1 Cueva Referring In Womens Ultrasound excess 7- Criss. Provider: Health SURENDRA, growth, second 7 700 Criss Cueva PO Box tri, [email or web address] weeks Medical , 700 1522, gestation of [facility] [place], Dr, [facility] Dr FIELDS, 120, Dave 120, [id number], Ashish Hinojosa, [facility] [place], tel: [phone]. , [place]. tel: tel: [phone] Kimberly Hinojosa Maternal care for Mar-2 Cueva Referring In Womens excess 2-201 Criss. Provider: Health SURENDRA, growth, second 7 700 Criss Cueva PO Box tri, Medical , 700 1522, [facility] supr[facility]n of normal Dr, [facility] Dr FIELDS, , second 120, Dave 120, [id number], [email or web address] weeks Ashish Hinojosa, [place], tel: [phone]. , [place]. tel: tel: [phone] Kimberly Hinojosa Unspecified lump Feb-2 Cueva Referring In Womens in breastPap - Criss. Provider: Health SURENDRA, Smear Screening, 7 700 Criss Cueva PO Box CervixEncounter Medical , 700 1522, for suprvsn of [facility] [place], normal , , [facility] Dr FIELDS, first [email or web address] 120, Dave 120, [id number], weeks gestation Ashish Hinojosa, of [place], tel: [phone]. , [place]. tel: tel: [phone] Kimberly Hinojosa Darshan- Cueva In Womens 5-201 Criss. Health SURENDRA, 4 700 PO Box Medical [address], [place] [address] Jarvis, [facility] [place], 120, [id number], [place], [place], tel: [phone] , [place]. tel: [phone] Family History Family Member Diagnosis Age At [...] older Payers Payer name Insurance type Covered republican ID Authorization(s) [employer] [place] [employer] - Medicaid [place] [id number] [employer] - Medicaid [place] [id number] Social History Type Description Quantity Date Captured Alcohol Use Details No Caffeine Use Details Unknown Tobacco Use Status Unknown Smoking Status Never smoker Vital Signs Date / Height Weight BMI Pulse Blood Temperature Respiratory Body Head BMI Time: Rate Pressure Rate Surface Circumference percentile Area 147.60 25.9 124/ lbs 0 mm[Hg] 3:09 kg/m PM eter (2) Chief Complaint And Reason For Visit Unknown Chief Complaint And Reason For Visit Reason For Referral Reason For Referral Unknown Plan Of Care Date Type Action Status Appointment Nannette Jones BOOKED Future Order: Radiology Order Breast Ultrasound Left Breast Ordered ([id number]) Future Order: Radiology Order Complete OB Ultrasound > 14 Ordered Weeks ([id number]) Date Type Problem Goal Intervention Status Start [...] Information labor signs group B strep screening CTC appt card gestational glucose lab screening anticipated [...]
--- OUTSIDE RECORDS SUMMARY | 2017-01-04 04:00 | External Medical Summary | Continuity of Care Document ---
:1990 Author Organization [facility] Address [address] [place], [place] [address] Phone Care Team Providers Name Role Phone Sarah Beaver Unavailable Unavailable Allergies, Adverse Reactions, Alerts Substance Reaction Severity Status No Known Drug Allergies Unknown Active Medications Medication Instructions Dosage Effective Dates Status Comments (start - stop) Keflex 500 mg take 1 capsule by 500 MG - Active capsule ORAL route 4 times every day Macrobid 100 mg take 1 tablet by Not Available - Active capsule oral route 2 times every day ONE DAILY take 1 tablet by - Active (unknown strength) oral route every day Problems Condition Effective Dates (start - stop) Clinical Status Encounter for suprvsn of normal - , third trimester 30 weeks gestation of - Unsp infct of [...] first trimester 11 weeks gestation of - Maternal care for [...] second trimester 27 weeks gestation of - SAB Uncomplicated, Incomplete - Active Anemia, Acute Blood Loss - Active SAB Uncomplicated, Incomplete - Active Dysfunctional Uterine Bleeding - Active SAB Uncomplicated, Complete - Active Procedures Procedure Date Immuniz admnin, 1 vac, sngl/combo 19 Yrs + TDAP VACCINE >7 IM OB Visit No Charge Results Test Name Date and Time Measure Units Reference Range Abnormal Flag Comments Unknown Advance Directives Directive Yes / No Effective Date File Name Unknown Encounters Encounter Practice Location Reason(s) Diagnoses Date Provider Care Team Description For Visit Members Kimberly Hinojosa Hematuria, Cueva Referring In Womens unspecifiedEncoun 7-201 Criss. Provider: Jignesh AGOSTO, ter for suprvsn 7 700 Criss Cueva PO Box of normal Medical K, 700 1522, , third [facility], [email or web address] weeks , [facility] Dr FIELDS, gestation of 120, Dave 120, , Ashish Hinojosa, [facility], [place], tel: [phone]. , [place]. tel: tel: [phone] Kimberly Hinojosa Encounter for Cueva Referring In Womens suprvsn of normal 5-201 Criss. Provider: Jignesh AGOSTO, , third 7 700 Criss Cueva PO Box [email or web address] weeks Medical K, 700 1522, gestation of [facility], , [facility] Dr FIELDS, 120, Dave 120, [id number], Ashish Hinojosa, [facility], [place], tel: [phone]. , [place]. tel: tel: [phone] Kimberly Hinojosa Unsp infct of Shaq-1 [place] Referring In Womens urinary tract in 5-201 Rhea. Provider: Health SURENDRA, , second 7 700 Criss Cueva PO Box trimesterEncounte Medical , 700 1522, r for suprvsn of [facility], normal , , [facility] Dr FIELDS, second 120, Dave 120, [id number], [email or web address] weeks Ashish Hinojosa, gestation of [place], tel: [phone]. , [place]. tel: tel: [phone] Kimberly Hinojosa Encounter for Shaq-1 Cueva Referring In Womens suprvsn of normal 3-201 Criss. Provider: Health SURENDRA, , second 7 700 Criss Cueva PO Box [email or web address] weeks Medical , 700 1522, gestation of [facility], , [facility] Dr FIELDS, 120, Dave 120, [id number], Ashish [place], [place], tel:[phone]. , [place]. tel: tel: [phone] Kimberly Hinojosa Encounter for May-1 Cueva Referring In Womens suprvsn of normal 6-201 Criss. Provider: Jignesh AGOSTO, , second 7 700 Criss Cueva PO Box [email or web address] weeks Medical , 700 1522, gestation of [facility], , [facility] Dr FIELDS, 120, Dave 120, [id number], Ashish Hinojosa, [place], tel:[phone]. , [place]. tel: tel: [phone] Kimberly Hinojosa Encounter for Apr-1 Cueva Referring In Womens suprvsn of normal 7-201 Criss. Provider: Health SURENDRA, , second 7 700 Criss Cueva PO Box [email or web address] weeks Medical , 700 1522, gestation of [facility], , [facility] [address] FIELDS, 120, Dave 120, [id number], Ashish Hinojosa, [place], tel:[phone]. , [place]. tel: tel: [phone] Kimberly Hinojosa Maternal care for Apr- Cueva Referring In Womens Ultrasound excess 7- Criss. Provider: Jignesh AGOSTO, growth, second 7 700 Criss Cueva PO Box tri, [email or web address] weeks [facility], 700 1522, gestation of [facility], Dr, [facility] Dr FIELDS, 120, Dave 120, [id number], Ashish Hinojosa, [place], tel: [phone]. , [place]. tel: tel: [phone] Kimberly Hinojosa Maternal care for Mar- Cueva Referring In Womens excess 2-201 Criss. Provider: Jignesh AGOSTO, growth, second 7 700 Criss Cueva PO Box tri, [facility], 700 1522, unspEncounter for [facility], suprvsn of normal , [facility] Dr FIELDS, , second 120, Dave 120, [id number], [email or web address] weeks Ashish Hinojosa, gestation of [place], tel: [phone]. , [place]. tel: tel: [phone] Kimberly Hinojosa Unspecified lump Feb-2 Cueva Referring In Womens in breastPap - Criss. Provider: Jignesh AGOSTO, Smear Screening, 7 700 Criss Cueva [facility]22, for suprvsn of [facility] [place], normal , , [facility] Dr FIELDS, first [email or web address] 120, Dave 120, [id number], weeks gestation Ashish Hinojosa, [place], tel: [phone]. , [place]. tel: tel: [phone] Kimberly Hinojosa Oct- Cueva In Womens 5-201 Criss. Health SURENDRA, 4 700 PO Box Medical 1522, [place], [place], 120, [id number], Ashish, [place], tel: [phone] , [place]. tel: [phone] Family History Family Member Diagnosis Age At [...] older Payers Payer name Insurance type Covered constitution party ID Authorization(s) [employer] - Medicaid [place] [id number] [employer] - Medicaid [place] [id number] Social History Type Description Quantity Date Captured Alcohol Use Details No Caffeine Use Details Unknown Tobacco Use Status Unknown Smoking Status Never smoker Vital Signs Date / Height Weight BMI Pulse Blood Temperature Respiratory Body Head BMI Time: Rate Pressure Rate Surface Circumference percentile Area 143.00 25.0 120/2017 lbs 9 mm[Hg] 3:26 kg/m PM eter (2) 143.00 25.0 1182017 lbs 9 mm[Hg] 3:26 kg/m PM eter (2) 143.00 25.0 118/ lbs 9 mm[Hg] 3:25 kg/m PM eter (2) 143.00 25.0 1182017 lbs 9 mm[Hg] 3:25 kg/m PM eter (2) Chief Complaint And Reason For Visit Unknown Chief Complaint And Reason For Visit Reason For Referral Reason For Referral Unknown Plan Of Care Date Type Action Status Appointment Nannette Jones BOOKED Future Order: Radiology Order Breast Ultrasound Left Breast Ordered ([id number]) Future Order: Radiology Order Complete OB Ultrasound > 14 Ordered Weeks ([id number]) Date Type Problem Goal Intervention Status Start [...] influenza vaccine environmental / work hazards travel tobacco (ask, advise, assess, assist and arrange) HIV and other routine tests risk factors identified by history alcohol illicit / recreational drugs use of any medications (including supplements, vitamins, herbs, OTC drugs) smoking counseling domestic violence seat belt use genetic testing new ob handbook Zika virus assessment & precautions dentist, wt gain 25-35#
--- OUTSIDE RECORDS SUMMARY | 2017-01-04 04:00 | External Medical Summary ---
:1990 Author Organization eClinicalWorks Care Team Providers Name Role Phone Jeniffer Hampton Provider Role Unavailable Allergies No Known Allergies Problems Problem Type Condition ICD-9 Code Onset Dates Condition Status Assessment Other general medical V70.3 Active examination for administrative purposes Problem Unspecified anemia 285.9 Active Medications Medication Code System Code Instructions Start End Date Status Dosage Date Levora 0.15/30 [facility] 41644-161 0.15-30 MG-MCG August 29, 1 tablet (28) 0-28 Orally Once a day 2014 Ibuprofen [facility] 09171-483 600 MG Orally 1 tablet 0-00 Three times a day Results No Known Results Summary Purpose eClinicalWorks Submission
--- OUTSIDE RECORDS SUMMARY | 2017-01-04 04:00 | External Medical Summary ---
:1990 Author Organization eClinicalWorks Care Team Providers Name Role Phone Jeniffer Hampton Provider Role Unavailable Allergies No Known Allergies Problems Problem Type Condition Code Onset Dates Condition Status Problem Unspecified anemia 285.9 Active Medications Medication Code System Code Instructions Start End Date Status Dosage Date Levora 0.15/30 [facility] 20419-377 0.15-30 MG-MCG August 29 tablet (28) 0-28 Orally Once a day 2014 Results No Known Results Summary Purpose eClinicalWorks Submission
--- OUTSIDE RECORDS SUMMARY | 2017-01-04 04:00 | External Medical Summary | Continuity of Care Document ---
:1990 Author Organization [facility] Address [address] [place], [place] [address] Phone Care Team Providers Name Role Phone [...] Womens suprvsn of normal 2-201 Criss. Provider: Jignesh AGOSTO, , third 7 700 Criss Cueva PO Box [email or web address] weeks Medical K, 700 1522, gestation of [facility], , [facility] Dr FIELDS, 120, Dave 120, , Ashish Hinojosa, [place], [place], tel: [phone]. , [place]. tel: tel: [phone] Kimberly Rivera Cueva Referring In Womens unspecifiedEncoun 7-201 Criss. Provider: [place] for suprvsn 7 700 Criss Cueva PO Box of normal Medical K, 700 1522, , third [facility], [email or web address] weeks , [facility] Dr FIELDS, gestation of 120, Dave 120, , Ashish Hinojosa, [place], tel: [phone]. , [place]. tel: tel: [phone] Kimberly Hinojosa Oct- Cueva In Womens 4-201 Criss. Jignesh AGOSTO, 7 700 PO Box Medical 15[address], [place] [address] [place] [address] [place], 120, , Ashish [place], tel: [phone] , [place]. tel: [phone] Kimberly Hinojosa Encounter for Darshan-0 Cueva Referring In Womens suprvsn of normal 5-201 Criss. Provider: Health SURENDRA, , third 7 700 Criss Cueva PO Box [email or web address] weeks Medical , 700 1522, [facility], , [facility] Dr FIELDS, 120, Dave 120, [id number], Ashish Hinojosa, [facility], [place], tel: [phone]. , [place]. tel: tel: [phone] Kimberly Hinojosa Unsp infct of Shaq-1 [place] Referring In Womens urinary tract in 5-201 Rhea. Provider: Jignesh AGOSTO, , second 7 700 Criss Cueva PO Box trimesterEncounte Medical , 700 1522, r for suprvsn of [facility], normal , , [facility] Dr FIELDS, second 120, Dave 120, , [id number] weeks Ashish Hinojosa, gestation of [place], tel: [phone]. , [place]. tel: tel: [phone] Kimberly Hinojosa Encounter for Shaq-1 Cueva Referring In Womens suprvsn of normal 3-201 Criss. Provider: Jignesh AGOSTO, , second 7 700 Criss Cueva PO Box [email or web address] weeks Medical , 700 1522, gestation of [facility], , [facility] Dr FIELDS, 120, Dave 120, [id number], Ashish Hinojosa, [place], [place], tel: [phone]. , [place]. tel: tel: [phone] Kimberly Hinojosa Encounter for May-1 Cueva Referring In Womens suprvsn of normal 6-201 Criss. Provider: Jignesh AGOSTO, , second 7 700 Criss Cueva PO Box weeks Medical , 700 1522, gestation of [facility], , [facility] Dr FIELDS, 120, Dave 120, , Ashish [place], [place], tel:[phone]. , [place]. tel: tel: [phone] Kimberly Hinojosa Encounter for Apr-1 Cueva Referring In Womens suprvsn of normal Criss. Provider: Jignesh AGOSTO, , second 7 700 Criss Cueva PO Box [email or web address] weeks Medical , 700 1522, gestation of [facility], , [facility] Dr FIELDS, 120, Dave 120, , Ashish H[place], [place], tel: [phone]. , [place]. tel: tel: [phone] Kimberly Hinojosa Maternal care for Apr-1 Cueva Referring In Womens Ultrasound excess Criss. Provider: Jignesh AGOSTO, growth, second 7 700 Criss Cueva PO Box tri, [email or web address] weeks [facility], 700 1522, gestation of [facility], , [facility] Dr FIELDS, 120, Dave 120, , Ashish H[place], [place], tel: [phone]. , [place]. tel: tel: [phone] Kimberly Hinojosa Maternal care for Mar-2 Cueva Referring In Womens excess - Criss. Provider: Jignesh AGOSTO, growth, second 7 700 Criss Cueva PO Box tri, [facility], 700 1522, unspEncounter for [facility], suprvsn of normal , [facility] Dr FIELDS, , second 120, Dave 120, [id number], [id number] weeks Ashish Hinojosa, [place] gestation of [place], tel: [phone]. , [place]. tel: tel: [phone] Kimberly Hinojosa Unspecified lump Feb-2 Cueva Referring In Womens in breastPap 4- Criss. Provider: Jignesh AGOSTO, Smear Screening, 7 700 Criss Cueva PO Box CervixEncounter [facility], 700 1522, for suprvsn of [facility], normal , , [facility] Dr FIELDS, first 120, Dave 120, [id number], weeks gestation [place], of [place], [place], tel: [phone]. , . tel: tel: [phone] Associates Hinojosa Cueva In Womens 5-201 Criss. [facility], 4 700 PO Box Medical [address], [place] [address] [place], [facility], 120, [id number], [place], [place], tel: [phone] , . tel: [phone] Family History Family Member Diagnosis Age At [...] Authorization(s) [employer] - Medicaid MC [id number] [employer] - Medicaid [place] [id number] Social History Type Description Quantity Date Captured [...] Radiology Order Breast Ultrasound Left Breast Ordered ([id number]) Future Order: Radiology Order Complete OB Ultrasound > 14 Ordered Weeks ([id number]) Date Type Problem Goal Intervention Status Start [...]
--- OUTSIDE RECORDS SUMMARY | 2017-01-04 04:00 | External Medical Summary ---
:1990 Author Organization eClinicalWorks Care Team Providers Name Role Phone Jeniffer Hampton Provider Role Unavailable Allergies No Known Allergies Problems Problem Type Condition Code Onset Dates Condition Status Problem Unspecified anemia 285.9 Active Medications Medication Code System Code Instructions Start Date End Date Status Dosage Tri-Sprintec [facility] 93023-174 0.18/0.215/0.25 August 23 tablet 8-58 MG-35 MCG Orally 2014 Once a day Results No Known Results Summary Purpose eClinicalWorks Submission
--- OUTSIDE RECORDS SUMMARY | 2017-01-04 04:00 | External Medical Summary | Continuity of Care Document ---
:1990 Author Organization [facility] [employer] Address [address] [place], [place] [id number] Phone Care Team Providers Name Role Phone [...] third trimester 37 weeks gestation of - Unspecified lump in [...] Procedure Date OB Visit No Charge - [employer] Results Test Name Date and Time Measure Units Reference Range Abnormal Flag Comments Unknown Advance Directives Directive Yes / No Effective Date File Name Unknown Encounters Encounter Practice Location Reason(s) Diagnoses Date Provider Care Team Description For Visit Members Kimberly Hinojosa Encounter for Dec- Cueva Referring In Womens suprvsn of normal 6-201 Criss. Provider: Jignesh AGOSTO, , third 7 700 Criss Cueva [id number] weeks Medical K, 700 1522, [facility], , [facility] [address] FIELDS, 120, Dave 120, [id number], Ashish Hinojosa, [place], tel:[phone] [id number] , [place]. tel: tel: [phone] Kimberly Hinojosa Encounter for Nov- Cueva Referring In Womens suprvsn of normal 0-201 Criss. Provider: Jignesh AGOSTO, , third 7 700 Criss Ceuva [address] [email or web address] weeks Medical K, 700 1522, gestation of [facility], , [facility] Dr FIELDS, 120, Dave 120, [id number], Ashish Hinojosa, [place], [place], tel: [phone]. , [place]. tel: tel: [phone] Hinojosa Encounter for Aug-2 Cueva Referring In Womens suprvsn of normal 3-201 Criss. Provider: Health SURENDRA, , third 7 700 Criss Cueva [address] [email or web address] weeks Medical K, 700 1522, gestation of [facility], , [facility] Dr FIELDS, 120, Dave 120, [id number], Ashish Hinojosa, [place], [place], tel: [phone]. , [place]. tel: tel: [phone] Hinojosa Unsp infct of Aug-1 Cueva Referring In Womens urinary tract in 7-201 Criss. Provider: Health SURENDRA, , third 7 700 Criss Cueva [address] [email or web address] weeks Medical K, 700 1522, gestation of [facility], , [facility] Dr FI[place]DS, 120, Dave 120, [id number], Ashish Hinojosa, [place] FI[place]DS, tel: [phone]. , [place]. tel: tel: [phone] Hinojosa Encounter for Aug-1 Cueva Referring In Womens suprvsn of normal 6-201 Criss. Provider: Health SURENDRA, , third 7 700 Criss Cueva [address] [id number] weeks Medical K, 700 1522, gestation of [facility], , [facility] Dr [place]DS, 120, Dave 120, [id number], Ashish Hinojosa, [place], [place], tel: [phone]. , [place]. tel: tel: [phone] Hinojosa 34 weeks Aug-0 Cueva Referring In Womens gestation of 2-201 Criss. Provider: Health SURENDRA, pregnancyEncounte 7 700 Crsis Cueva PO Box r for suprvsn of Medical K, 700 1522, normal , [facility], third trimester , [facility] Dr [place]DS, 120, Dave 120, [id number], Ashish Hinojosa, [place] FI[place]DS, tel: [phone]. , [place]. tel: tel: [phone] Kimberly Hinojosa Hematuria, Oct-1 Cueva Referring In Womens unspecifiedEncoun Criss. Provider: [facility] [place], ter for suprvsn 7 700 Criss Cueva PO Box of normal Medical K, 700 1522, , third Center [facility], [email or web address] weeks , [facility] Dr FI[place]DS, gestation of 120, Dave 120, , Ashish Hinojosa, [place]OND FI[place]DS, tel: [phone]. , [place]. tel: tel: [phone] Kimberly Hinojosa Encounter for Oct-0 Cueva Referring In Womens suprvsn of normal Crsis. Provider: Health SURENDRA, , third 7 700 Criss Cueva PO Box [id number] weeks Medical , 700 1522, gestation of [facility], Dr, [facility] Dr [place]DS, 120, Dave 120, [id number], Ashish Hinojosa, [place] FI[place]DS, tel: [phone]. , [place]. tel: tel: [phone] Kimberly Hinojosa Unsp infct of Shaq-1 Thompson Referring In Womens urinary tract in Rhea. Provider: Health SURENDRA, , second 7 700 Criss Cueva PO Box [facility] , 700 1522, r for suprvsn of [facility], normal , , [facility] Dr [place]DS, second 120, Dave 120, , [email or web address] weeks Ashish Hinojosa, gestation of DI[place]OND FIELDS, tel:[phone]. , [place]. tel: tel: [phone] Kimberly Hinojosa Encounter for Shaq-1 Cueva Referring In Womens suprvsn of normal 3-201 Criss. Provider: Jignesh AGOSTO, , second 7 700 Criss Cueva PO Box [email or web address] weeks Medical , 700 1522, [facility], , [facility] Dr FI[place]DS, 120, Dave 120, [id number], Ashish Hinojosa, DI[place], DI[place], tel: [phone]. , [place]. tel: tel: [phone] Hinojosa Encounter for May-1 Cueva Referring In Womens suprvsn of normal 6-201 Criss. Provider: Jignesh AGOSTO, , second 7 700 Criss Cueva PO Box [id number] weeks [facility], 700 1522, [facility], , [facility] Dr [place]DS, 120, Dave 120, [id number], Ashish Hinojosa, [place], DI[place], tel: [phone]. , [place]. tel: tel: [phone] Hinojosa Encounter for Apr-1 Cueva Referring In Womens suprvsn of normal 7-201 Criss. Provider: Jignesh AGOSTO, , second 7 700 Criss Cueva PO Box [email or web address] weeks Medical , 700 1522, gestation of [facility], , [facility] Dr [place]DS, 120, Dave 120, [id number], Ashish Hinojosa, [place], [place], tel: [phone]. , [place]. tel: tel: [phone] Hinojosa Maternal care for Apr-1 Cueva Referring In Womens Ultrasound excess 7-201 Criss. Provider: Jignesh AGOSTO, growth, second 7 700 Criss Cueva PO Box tri, [email or web address] weeks [facility], 700 1522, [facility], , [facility] Dr [place]DS, 120, Dave 120, [id number], Ashish Hinojosa, [place], DIAMOND, tel: [phone]. , [place]. tel: tel: [phone] Hinojosa Maternal care for Mar-2 Cueva Referring In Womens excess 2-201 Criss. Provider: Jignesh AGOSTO, growth, second 7 700 Criss Cueva PO Box [facility], 700 1522, unspEncounter for [facility], suprvsn of normal Dr, [facility] Dr FIELDS, , second 120, Dave 120, [id number], [email or web address] weeks Ashish Hinojosa, gestation of [place], DI[place], tel:[phone]. , [place]. tel: tel: [phone] Kimberly Hinojosa Unspecified lump Feb- Cueva Referring In Womens in breastPap 4-201 Criss. Provider: Jignesh AGOSTO, Smear Screening, 7 700 Criss Cueva [facility], for suprvsn of [facility], normal , , [facility] Dr FIELDS, first [email or web address] 120, Dave 120, [id number], weeks gestation Ashish Hinojosa, of [place], [place], tel: [phone]. , [place]. tel: tel: [phone] Kimberly Hinojosa Cueva In Womens 5-201 Criss. Jignesh AGOSTO, 4 700 [address] Medical [address], [place], , Dave [place], 120, [id number], [facility] [place], tel:[phone] , [place]. tel: [phone] Family History Family Member Diagnosis Age At [...] Authorization(s) [employer] - Medicaid [place] [id number] [employer] - Medicaid [place] [id number] Social History Type Description Quantity Date Captured Alcohol Use Details No Caffeine Use Details Unknown Tobacco Use Status Unknown Smoking Status Never smoker Vital Signs Date / Height Weight BMI Pulse Blood Temperature Respiratory Body Head BMI Time: Rate Pressure Rate Surface Circumference percentile Area 148.30 26.0 120/70 -2017 lbs 2 mm[Hg] 10:23 kg/m AM eter (2) Chief Complaint And Reason For Visit Unknown Chief Complaint And Reason For Visit Reason For Referral Reason For Referral Unknown Plan Of Care Date Type Action Status Appointment Nannette Jones BOOKED Future Order: Radiology Order Breast Ultrasound Left Breast Ordered ([id number]) Future Order: Radiology Order Complete OB Ultrasound > 14 Ordered Weeks ([id number]) Date Type Problem Goal Intervention Status Start [...] Information labor signs group B strep screening [facility] app[place] card gestational glucose lab screening anticipated [...]
[2017-01-04] MEDS: LR 1,000 ML IV PRN ×3 (04:06→06:17)
[2017-01-04 04:18] VITALS: BMI 26.9
[2017-01-04] MEDS ORDERED: ONDANSETRON 4 MG/2 ML INJECTION IVP PRN (05:10)
[2017-01-04] MEDS ORDERED: NALOXONE 0.4 MG/ML INJECTION IVP PRN (05:10)
[2017-01-04] MEDS ORDERED: ROPIVACAINE 1% 10MG/ML INJ 200 MG, SUFentanil 50 MCG in NS 100 ML EPI PRN (05:10)
[2017-01-04] MEDS ORDERED: DiphenhydrAMINE 50 MG/ML INJECTION IVP PRN (05:10)
--- NOTE | 2017-01-04 05:11 | Anesthesia Preoperative Report ---
Anesthesia Epidural/Spinal Rec - Date and Time Date: 01/04/17 Preoperative Diagnosis: Term spontaneous labor Procedure: Labor Epidural Plan: Epidural - Vital Signs Vital Signs: Temperature 98.2 F 01/04/17 04:08 Pulse Rate 62 01/04/17 04:08 Respiratory Rate 18 01/04/17 04:08 Blood Pressure 133/73 01/04/17 04:08 Pulse Oximetry 97 01/04/17 04:08 /Para: P:1 - Medictaions & Allergies Inpatient Medications: Current Medications Acetaminophen (Tylenol) 500 - 1,000 mg PO Q4H PRN PRN Reason: Pain Al Hydroxide/Mg Hydroxide (Maalox Plus) 30 ml PO Q3H PRN PRN Reason: Indigestion Calcium Carbonate (Tums) 500 - 1,000 mg PO Q2H PRN PRN Reason: Indigestion Carboprost Tromethamine (Hemabate) 250 mcg IM O PRN PRN Reason: .Downtime Lactated Ringer's (Lactated Ringers) 1,000 mls @ 999 mls/hr IV .Q1H1M PRN Last Admin: 01/04/17 04:41 Dose: 999 mls/hr Lidocaine HCl (Xylocaine-Mpf 1% Vial) 0.2 mg ID O PRN PRN Reason: IV Start Methylergonovine Maleate (Methergine) 0.2 mg IM O PRN Misoprostol (Cytotec) 800 mcg PA ONCE PRN Allergies/Adverse Reactions: Allergies Allergy/AdvReac Type Severity Reaction Status Date / Time No Known Drug Allergies Allergy Unknown Verified 04/03/08 14:26 - Home Medications Home Medications: Home Medications Medication Instructions Recorded Confirmed Type Pnv No.95/Ferrous Fum/Folic AC 1 tab PO DAILY #0 tab 02/01/14 01/04/17 History [ Vitamins Tablet] - Medical History Respiratory: DENIES: Asthma, Bronchitis, Chronic Obstructive Pulmonary Disease (COPD), Dyspnea, Orthopnea, Pulmonary Embolism, Pneumonia, Upper Respiratory Infection, Pulmonary Edema, Sleep Apnea, Tuberculosis, Other Cardiovascular: DENIES: Abnormal EKG, Angina, Arrhythmia, Congestive Heart Failure, Coronary Artery Disease, Heart Murmur, Hypertension, Hypotension, High Cholesterol, Myocardial Infarction, Rheumatic Fever, Valvular Heart Disease, Other Gastrointestional: DENIES: Obstructive Bowel, Hepatitis, Cirrhosis, Nausea or Vomiting Present, Gastroesophageal Reflux Disease, Gastrointestinal Bleeding, Hiatal Hernia, Ulcer , Morbid Obesity, Other Neuro/Musculoskeletal: Denies: HX.MS.OSAR, Back Problems, Cerebrovascular Accident, Depression, Headaches, Loss of Consciousness, Muscle Weakness, Neuromuscular Disorder, Paralysis, Paresthesia, Syncope, Seizures, Other Renal/Endocrine: DENIES: Diabetes Mellitus Type 1, Diabetes Mellitus Type 2, Renal Failure, Dialysis, Thyroid Disease, Weight Loss, Weight Gain, Other Other History: Reports: Now DENIES: Anesthesia Reactions, Blood Transfusions, Chemotherapy, Cancer, Hemophilia, Malignant Hyperthermia, Sickle Cell Disease, Other - Surgical History Anesthesia Reactions: None Hx Family Anesthesia Reaction: No History of Motion Sickness: No - Social History Smoking Status: Never smoker Second Hand Exposure: No Substance Use Type: does not use Alcohol Intake: never Alcohol Intake Frequency: does not drink Hx Chewing Tobacco Use: No - Pertinent Findings Lab Data: CBC and BMP 01/04/17 04:19 - Physical Exam Respiratory Exam: lungs clear, bilateral breath sounds equal Cardiovascular Exam: regular rate and rhythm, no murmur - Airway Assessment Mallampati Score: I TMD: 3 Fingerbreadths Neck Extension: good Overall Assessment: no airway concerns - ASA ASA Score: 2 - Discussion Discussion: Discussed risks/options/alternatives of anesthesia and questions answered. Patient consents. Nursing pain assessment noted. Anesthesia Discussion: spouse Attestation Statement: Prior to the delivery of any anesthetic medication, I examined the patient, developed the plan, obtained the patient's consent and discussed the risk and benefits of the procedure with the patient/guardian.
[2017-01-04] MEDS ORDERED: SALINE FLUSH 10ml SYRINGE IV PRN (13:19)
[2017-01-04] MEDS ORDERED: HYDROCORTISONE 2.5% CREAM 30gm RECTALLY PRN (13:19)
[2017-01-04] MEDS ORDERED: DiphenhydrAMINE 25 MG CAPSULE PO PRN (13:19)
[2017-01-04] MEDS ORDERED: OXYTOCIN DRIP 30 UNIT/500 ML ML IV SCH (13:30)
[2017-01-04] MEDS: IBUPROFEN 800 MG TABLET PO SCH (13:33)
[2017-01-04] MEDS: HYDROCODONE/APAP 5mg/325mg TABLET PO PRN (19:26)
[2017-01-05] MEDS: IBUPROFEN 800 MG TABLET PO SCH ×2 (01:10→09:30)
[2017-01-05] MEDS: HYDROCODONE/APAP 5mg/325mg TABLET PO PRN (01:32)
[2017-01-05 07:37] VITALS: BP 128/60; PULSE 64; RESP 14; TEMP 98.6; O2SAT 99
--- NOTE | 2017-01-05 08:21 | OB/GYN Progress Note ---
OB-PP Progress Note - General PPD1 Maternal Group B Strep: Negative Maternal blood type: O+ Maternal Rubella Status: Immune - Subjective Date: 01/05/17 Lochia: Moderate Pain: contolled Voiding: voiding Nausea or Vomiting Present: No - Objective Vital Signs: Last Vital Signs Temp 98.6 F 01/05/17 07:00 Pulse 64 01/05/17 07:00 Resp 14 01/05/17 07:00 BP 128/60 01/05/17 07:00 Pulse Ox 99 01/05/17 07:00 Urine Output: good General: alert and oriented Respiratory: non-labored Abdomen: fundus firm Extremities: non-tender Edema: none - Assessment Assessment: SP, - Plan Plan: routine care Expected date of discharge: 01/05/17
--- NOTE | 2017-01-05 08:59 | Discharge Instructions ---
Discharge Plan - Med Rec/Dispo Referrals/Follow Up: Criss Cueva MD [Physician] - Mickey Instructions: [facility] Vaginal Delivery Prescriptions: New Hydrocodone/APAP 5/325 [Stanfield 5/325] 1 - 2 tab PO Q4H PRN #30 tab PRN Reason: Pain Ibuprofen [Motrin] 800 mg PO Q8H #30 tab Continue Pnv No.95/Ferrous Fum/Folic AC [ Vitamins Tablet] 1 tab PO DAILY #0 tab - Disposition 01 Discharged Home, Self-Care
[2017-01-05] MEDS ORDERED: DOCUSATE CALCIUM 240 MG CAPSULE PO SCH (09:00)
--- NOTE | 2017-01-05 09:03 | Labor and Delivery Note ---
DATE OF DELIVERY: 01/04/2017 This is a delivery note for a patient of Dr. Sequeira. Ms. Jones presented this morning in active labor. She progressed well in first stage, receiving epidural analgesia at about 5 cm of dilatation. When she was complete and +1, she began to push with excellent effort. She pushed for about 2 hours and 20 minutes. Baby was asynclitic and was not moving well despite excellent effort. heart tones were reactive and reassuring throughout this. I discussed the options with the patient and recommended the vacuum be applied. We discussed the potential risks of this versus potential benefits. The vacuum was applied. Over the course of one contraction, she pushed well and the baby's head was delivered in the vertex OA presentation. The baby was significantly asynclitic. The vacuum was removed prior to complete delivery of the head. There was no evidence of nuchal cord. Baby was bulb suctioned on the perineum. With one further push, baby was delivered in total. Baby was further bulb suctioned and placed on mother's abdomen. After about 2-1/2 minutes, the cord was doubly clamped. It was cut by the baby's father, Jim. This is a liveborn female with Apgars of 8/8/9. Weight has not yet been obtained. After a few moments, the placenta delivered spontaneously, intact. It had a normal configuration and a normal-appearing three-vessel cord. There was a second-degree irregular midline laceration that was repaired in the usual fashion with a 2-0 Vicryl. There was a right labial laceration that was very superficial and hemostatic and was not repaired. There was a midline laceration just between clitoris and urethra that was hemostatic and I elected not to repair that. Total blood loss was approximately 400 ml. At the time of this dictation mother and baby are doing well. [facility]
== END 2017-01-05 14:40 | disposition home or self-care (01) | DRG 775 ==
LOC: MC 01-04 03:54
PROVIDERS: ADMIT Obstetrics & Gynecology; ATTEND Obstetrics & Gynecology